=== PATIENT | female | born 1940 | race African-American/Black ===

== ENCOUNTER 2022-11-22 13:15 | Inpatient (IN) | payer OTHER ==
[2022-11-22] MEDS ORDERED: METOCLOPRAMIDE HCL INJECTION 10 MG/2 ML VIAL IVPUSH ONE (14:41)
[2022-11-22] MEDS ORDERED: METOCLOPRAMIDE HCL INJECTION 10 MG/2 ML VIAL ONE (15:00)
[2022-11-22 15:25] LABS: BASO % 0.8 % (0-2.0); EOS % 1.6 % (0-4.5); HEMATOCRIT 30.4 % (32.4-45.2); MCH 27.7 pg (25.7-33.7); MCHC 32.9 g/dl (32.0-36.0); MEAN CELL VOLUME 84.2 fl (80-96); MEAN PLT VOLUME 7.9 fl (7.5-11.1); MONO % 4.9 % (3.8-10.2); NEUT % 66.7 % (42.8-82.8); PLATELET COUNT 267 10^3/uL (134-434); RDW 13.7 % (11.6-15.6); WHITE BLOOD COUNT 7.9 K/mm3 (4.0-10.0)
[2022-11-22 15:32] LABS: INR 0.97 (0.83-1.09); PROTHROMBIN TIME (PATIENT) 11.2 SEC (9.7-13.0)
[2022-11-22 15:35] LABS: ACTIVATED PTT 28.5 SECONDS (25.2-36.5)
[2022-11-22 15:44] LABS: CHLORIDE 103 mmol/L (98-107); POTASSIUM 4.2 mmol/L (3.5-5.1); SODIUM 140 mmol/L (136-145)
[2022-11-22 15:46] LABS: CALCIUM 9.9 mg/dL (8.5-10.1)
[2022-11-22 15:47] LABS: ALBUMIN 3.8 g/dl (3.4-5.0); ANION GAP 13 MMOL/L (8-16); BLOOD UREA NITROGEN 76.2 mg/dL (7-18); CO2 25 mmol/L (21-32); GLUCOSE,RANDOM 119 mg/dL (74-106); MAGNESIUM 2.5 mg/dL (1.8-2.4)
[2022-11-22 15:50] LABS: SGOT/AST 14 U/L (15-37); SGPT/ALT 14 U/L (13-61)
[2022-11-22 15:51] LABS: BILIRUBIN,TOTAL 0.4 mg/dL (0.2-1)
[2022-11-22 15:52] LABS: TOT PROT 7.9 g/dl (6.4-8.2)
[2022-11-22 15:53] LABS: ALK PHOS 53 U/L (45-117); CREATININE 8.8 mg/dL (0.55-1.3)
[2022-11-22 18:49] LABS: EPI CELLS 18 /uL (0-25.1); HYALINE CASTS 0 /uL (0-3.1); PH,URINE 6.5 (5.0-8.0); URINE APPEARANCE CLEAR; URINE BACTERIA 46 /uL (0-1359); URINE BILIRUBIN NEGATIVE (NEGATIVE); URINE COLOR YELLOW; URINE GLUCOSE (UA) NEGATIVE (NEGATIVE); URINE KETONE TRACE (NEGATIVE); URINE LEUK ESTERASE NEGATIVE (NEGATIVE); URINE NITRITE NEGATIVE (NEGATIVE); URINE PROTEIN 3+ (NEGATIVE); URINE RBC 15 /uL (0-23.9); URINE UROBILINOGEN 0.2 mg/dL (0.2-1.0); URINE WBC 21 /uL (0-25.8)
[2022-11-22] MEDS ORDERED: PATIENT'S OWN MEDICATION (NON-FORMULARY) (Dorzolamide/Timolol/Pf [Dorzolamide-Timolol 2%-0 OP SCH (22:00)
[2022-11-22] MEDS: TIMOLOL 0.5% OPHTHALMIC SOL 5 ML BOTTLE OU SCH (22:45)
[2022-11-22] MEDS: DORZOLAMIDE 2% HCL OPHTHALMIC SOLUTION 10 ML BOTTLE OU SCH (22:45)
[2022-11-22] MEDS: HEPARIN NA (PORCINE) 5,000 UNITS/ML 1ML VIAL SQ SCH (23:30)
[2022-11-23] MEDS: HEPARIN NA (PORCINE) 5,000 UNITS/ML 1ML VIAL SQ SCH ×3 (06:38→22:35)
[2022-11-23 09:01] LABS: BASO % 0.8 % (0-2.0); EOS % 2.5 % (0-4.5); HEMATOCRIT 28.3 % (32.4-45.2); HEMOGLOBIN 9.3 GM/dL (10.7-15.3); LYMPH % 34.5 % (8-40); MCH 27.4 pg (25.7-33.7); MCHC 32.9 g/dl (32.0-36.0); MEAN CELL VOLUME 83.3 fl (80-96); MEAN PLT VOLUME 8.1 fl (7.5-11.1); MONO % 8.2 % (3.8-10.2); PLATELET COUNT 245 10^3/uL (134-434); RDW 13.9 % (11.6-15.6)
[2022-11-23] MEDS: TIMOLOL 0.5% OPHTHALMIC SOL 5 ML BOTTLE OU SCH ×2 (09:50→22:36)
[2022-11-23] MEDS: ASPIRIN COATED 81 MG TABLET.EC PO SCH (09:51)
[2022-11-23] MEDS: DORZOLAMIDE 2% HCL OPHTHALMIC SOLUTION 10 ML BOTTLE OU SCH ×2 (09:51→22:36)
[2022-11-23 09:55] LABS: CHLORIDE 108 mmol/L (98-107); POTASSIUM 3.9 mmol/L (3.5-5.1); SODIUM 141 mmol/L (136-145)
[2022-11-23 10:07] LABS: ALBUMIN 3.3 g/dl (3.4-5.0); ANION GAP 9 MMOL/L (8-16); BLOOD UREA NITROGEN 73.8 mg/dL (7-18); CALCIUM 9.1 mg/dL (8.5-10.1); CO2 24 mmol/L (21-32); GLUCOSE,RANDOM 97 mg/dL (74-106); MAGNESIUM 2.6 mg/dL (1.8-2.4)
[2022-11-23 10:10] LABS: PHOSPHOROUS 4.6 mg/dL (2.5-4.9); SGOT/AST 14 U/L (15-37); SGPT/ALT 11 U/L (13-61)
[2022-11-23 10:12] LABS: BILIRUBIN,TOTAL 0.5 mg/dL (0.2-1); TOT PROT 6.8 g/dl (6.4-8.2)
[2022-11-23 10:13] LABS: ALK PHOS 46 U/L (45-117)
[2022-11-23 10:18] LABS: CREATININE 8.6 mg/dL (0.55-1.3)
[2022-11-23] MEDS ORDERED: SODIUM CHLORIDE 0.45% 1,000 ML IV SCH (13:45)
[2022-11-23] MEDS: ROSUVASTATIN CA 10 MG TABLET PO SCH (22:35)
[2022-11-24] MEDS: HEPARIN NA (PORCINE) 5,000 UNITS/ML 1ML VIAL SQ SCH ×3 (05:40→21:09)
[2022-11-24 08:36] LABS: CHLORIDE 110 mmol/L (98-107); POTASSIUM 4.8 mmol/L (3.5-5.1); SODIUM 143 mmol/L (136-145)
[2022-11-24 08:42] LABS: CALCIUM 9.3 mg/dL (8.5-10.1)
[2022-11-24 08:43] LABS: ALBUMIN 3.4 g/dl (3.4-5.0); ANION GAP 8 MMOL/L (8-16); BLOOD UREA NITROGEN 73.1 mg/dL (7-18); CO2 24 mmol/L (21-32); GLUCOSE,RANDOM 113 mg/dL (74-106)
[2022-11-24 08:46] LABS: SGPT/ALT 12 U/L (13-61)
[2022-11-24 08:47] LABS: TOT PROT 7.3 g/dl (6.4-8.2)
[2022-11-24 08:48] LABS: BILIRUBIN,TOTAL 0.4 mg/dL (0.2-1)
[2022-11-24 08:49] LABS: ALK PHOS 49 U/L (45-117); CREATININE 8.5 mg/dL (0.55-1.3); SGOT/AST 13 U/L (15-37)
[2022-11-24] MEDS: SODIUM BICARBONATE 650 MG TABLET PO SCH ×2 (10:25→21:09)
[2022-11-24] MEDS: CALCITRIOL 0.25 MCG CAPSULE (FP) PO SCH (10:25)
[2022-11-24] MEDS: ASPIRIN COATED 81 MG TABLET.EC PO SCH (10:25)
[2022-11-24] MEDS: SODIUM ZIRCONIUM CYCLOSILICATE (LOKELMA) 5 GM PACKET PO SCH (10:25)
[2022-11-24] MEDS: DORZOLAMIDE 2% HCL OPHTHALMIC SOLUTION 10 ML BOTTLE OU SCH ×2 (10:26→21:12)
[2022-11-24] MEDS: TIMOLOL 0.5% OPHTHALMIC SOL 5 ML BOTTLE OU SCH ×2 (10:27→21:10)
[2022-11-24] MEDS: prednisoLONE ACETATE 1% OPHTH SUSP 5 ML BOTTLE OS SCH ×2 (10:47→21:14)
[2022-11-24 12:42] LABS: EOS % 3.3 % (0-4.5); HEMATOCRIT 28.4 % (32.4-45.2); HEMOGLOBIN 9.2 GM/dL (10.7-15.3); LYMPH % 31.6 % (8-40); MCH 27.3 pg (25.7-33.7); MCHC 32.3 g/dl (32.0-36.0); MEAN CELL VOLUME 84.6 fl (80-96); MEAN PLT VOLUME 8.7 fl (7.5-11.1); MONO % 8.2 % (3.8-10.2); NEUT % 55.9 % (42.8-82.8); PLATELET COUNT 230 10^3/uL (134-434); RBC 3.35 M/mm3 (3.60-5.2); RDW 14.2 % (11.6-15.6); WHITE BLOOD COUNT 6.4 K/mm3 (4.0-10.0)
[2022-11-24] MEDS ORDERED: SODIUM CHLORIDE 0.45% 1,000 ML IV SCH (15:30)
[2022-11-24] MEDS: ROSUVASTATIN CA 10 MG TABLET PO SCH (21:09)
[2022-11-25] MEDS: HEPARIN NA (PORCINE) 5,000 UNITS/ML 1ML VIAL SQ SCH ×3 (05:50→21:22)
[2022-11-25 08:34] LABS: CHLORIDE 110 mmol/L (98-107); SODIUM 140 mmol/L (136-145)
[2022-11-25 08:43] LABS: CALCIUM 8.4 mg/dL (8.5-10.1)
[2022-11-25 08:44] LABS: ALBUMIN 2.9 g/dl (3.4-5.0); ANION GAP 9 MMOL/L (8-16); BLOOD UREA NITROGEN 74.4 mg/dL (7-18); CO2 21 mmol/L (21-32); GLUCOSE,RANDOM 95 mg/dL (74-106)
[2022-11-25 08:47] LABS: SGOT/AST 12 U/L (15-37); SGPT/ALT 10 U/L (13-61)
[2022-11-25 08:48] LABS: TOT PROT 6.2 g/dl (6.4-8.2)
[2022-11-25 08:49] LABS: ALK PHOS 40 U/L (45-117); BILIRUBIN,TOTAL 0.3 mg/dL (0.2-1); CREATININE 8.4 mg/dL (0.55-1.3)
[2022-11-25] MEDS: CALCITRIOL 0.25 MCG CAPSULE (FP) PO SCH (09:40)
[2022-11-25] MEDS: SODIUM BICARBONATE 650 MG TABLET PO SCH ×2 (09:40→21:22)
[2022-11-25] MEDS: DORZOLAMIDE 2% HCL OPHTHALMIC SOLUTION 10 ML BOTTLE OU SCH ×2 (09:40→21:23)
[2022-11-25] MEDS: ASPIRIN COATED 81 MG TABLET.EC PO SCH (09:40)
[2022-11-25] MEDS: TIMOLOL 0.5% OPHTHALMIC SOL 5 ML BOTTLE OU SCH ×2 (09:41→21:23)
[2022-11-25] MEDS: prednisoLONE ACETATE 1% OPHTH SUSP 5 ML BOTTLE OS SCH ×2 (09:41→21:49)
[2022-11-25] MEDS ORDERED: amLODIPine BESYLATE 2.5 MG TABLET (FP) PO ONE (16:26)
[2022-11-25] MEDS: MECLIZINE HCL 12.5 MG TABLET PO SCH ×2 (17:32→21:22)
[2022-11-25] MEDS: ROSUVASTATIN CA 10 MG TABLET PO SCH (21:22)
[2022-11-26] MEDS: HEPARIN NA (PORCINE) 5,000 UNITS/ML 1ML VIAL SQ SCH ×3 (06:50→21:18)
[2022-11-26] MEDS: MECLIZINE HCL 12.5 MG TABLET PO SCH (06:50)
[2022-11-26] MEDS: ASPIRIN COATED 81 MG TABLET.EC PO SCH (10:23)
[2022-11-26] MEDS: amLODIPine BESYLATE 2.5 MG TABLET (FP) PO SCH (10:23)
[2022-11-26] MEDS: CALCITRIOL 0.25 MCG CAPSULE (FP) PO SCH (10:23)
[2022-11-26] MEDS: SODIUM BICARBONATE 650 MG TABLET PO SCH ×2 (10:23→21:18)
[2022-11-26] MEDS: DORZOLAMIDE 2% HCL OPHTHALMIC SOLUTION 10 ML BOTTLE OU SCH ×2 (10:24→21:19)
[2022-11-26] MEDS: TIMOLOL 0.5% OPHTHALMIC SOL 5 ML BOTTLE OU SCH ×2 (10:24→21:19)
[2022-11-26] MEDS: prednisoLONE ACETATE 1% OPHTH SUSP 5 ML BOTTLE OS SCH ×2 (10:24→21:20)
[2022-11-26] MEDS: SODIUM ZIRCONIUM CYCLOSILICATE (LOKELMA) 5 GM PACKET PO SCH (11:01)
[2022-11-26] MEDS ORDERED: MECLIZINE HCL 25 MG TABLET (FP) PO PRN (12:21)
[2022-11-26] MEDS ORDERED: SODIUM CHLORIDE 0.9% 500 ML INFUS.BAG IV ONE (13:00)
[2022-11-26] MEDS: ROSUVASTATIN CA 10 MG TABLET PO SCH (21:18)
[2022-11-27] MEDS: HEPARIN NA (PORCINE) 5,000 UNITS/ML 1ML VIAL SQ SCH ×3 (07:10→21:03)
[2022-11-27] MEDS: ASPIRIN COATED 81 MG TABLET.EC PO SCH (09:59)
[2022-11-27] MEDS: CALCITRIOL 0.25 MCG CAPSULE (FP) PO SCH (09:59)
[2022-11-27] MEDS: amLODIPine BESYLATE 2.5 MG TABLET (FP) PO SCH (09:59)
[2022-11-27] MEDS: SODIUM BICARBONATE 650 MG TABLET PO SCH ×2 (09:59→21:03)
[2022-11-27] MEDS: prednisoLONE ACETATE 1% OPHTH SUSP 5 ML BOTTLE OS SCH ×2 (10:00→21:03)
[2022-11-27] MEDS: TIMOLOL 0.5% OPHTHALMIC SOL 5 ML BOTTLE OU SCH ×2 (10:01→21:03)
[2022-11-27] MEDS: DORZOLAMIDE 2% HCL OPHTHALMIC SOLUTION 10 ML BOTTLE OU SCH ×2 (10:01→21:05)
[2022-11-27 12:04] LABS: CHLORIDE 109 mmol/L (98-107); POTASSIUM 4.2 mmol/L (3.5-5.1); SODIUM 141 mmol/L (136-145)
[2022-11-27 12:06] LABS: ANION GAP 8 MMOL/L (8-16); BLOOD UREA NITROGEN 74.3 mg/dL (7-18); CALCIUM 9.1 mg/dL (8.5-10.1); CO2 23 mmol/L (21-32); GLUCOSE,RANDOM 173 mg/dL (74-106)
[2022-11-27 12:43] LABS: CREATININE 8.9 mg/dL (0.55-1.3)
[2022-11-27] MEDS ORDERED: amLODIPine BESYLATE 5 MG TABLET (FP) PO SCH (15:11)
[2022-11-27] MEDS: ACETAMINOPHEN 1000 MG/100 ML BAG IVPB PRN (15:32)
[2022-11-27] MEDS: LIDOCAINE 5% TOPICAL PATCH TP SCH (15:32)
[2022-11-27] MEDS: ROSUVASTATIN CA 10 MG TABLET PO SCH (21:03)
[2022-11-27 21:08] LABS: ANTIGLOMERULAR BASEMENT MEN.AB <0.2 units (0.0-0.9)
[2022-11-27] MEDS ORDERED: LIDOCAINE PATCH REMOVAL MC SCH (22:00)
[2022-11-28] MEDS: HEPARIN NA (PORCINE) 5,000 UNITS/ML 1ML VIAL SQ SCH ×3 (06:00→21:29)
[2022-11-28] MEDS: SODIUM BICARBONATE 650 MG TABLET PO SCH ×2 (09:13→22:10)
[2022-11-28] MEDS: ASPIRIN COATED 81 MG TABLET.EC PO SCH (09:13)
[2022-11-28] MEDS: CALCITRIOL 0.25 MCG CAPSULE (FP) PO SCH (09:13)
[2022-11-28] MEDS: LIDOCAINE 5% TOPICAL PATCH TP SCH (09:13)
[2022-11-28] MEDS: ACETAMINOPHEN 1000 MG/100 ML BAG IVPB PRN (09:13)
[2022-11-28] MEDS: prednisoLONE ACETATE 1% OPHTH SUSP 5 ML BOTTLE OS SCH ×2 (09:14→21:33)
[2022-11-28] MEDS: DORZOLAMIDE 2% HCL OPHTHALMIC SOLUTION 10 ML BOTTLE OU SCH ×2 (09:14→21:34)
[2022-11-28] MEDS: TIMOLOL 0.5% OPHTHALMIC SOL 5 ML BOTTLE OU SCH ×2 (09:14→21:34)
[2022-11-28] MEDS ORDERED: HEPARIN NA (PORCINE) 5,000 UNITS/ML 1ML VIAL ONE (14:52)
[2022-11-28] MEDS ORDERED: LIDOCAINE HCL 1%, 10 MG/ML (20ML VIAL) ONE (14:52)
[2022-11-28] MEDS ORDERED: SODIUM CHLORIDE 250 ML IV PRN ×2 (15:56→19:00)
[2022-11-28] MEDS ORDERED: MIDAZOLAM HCL 2 MG/2 ML SINGLE DOSE VIAL ONE (16:07)
[2022-11-28 16:08] LABS: ATYPICAL pANCA <1:20 titer (Neg:<1:20); C-ANCA <1:20 titer (Neg:<1:20)
[2022-11-28] MEDS ORDERED: PROPOFOL 20 ML ONE (17:42)
[2022-11-28] MEDS ORDERED: SUCCINYLCHOLINE CHLORIDE 200 MG/10 ML SYRINGE ONE (17:43)
[2022-11-28] MEDS ORDERED: ceFAZolin SODIUM 1 GM VIAL IVPB ONE (17:54)
[2022-11-28] MEDS ORDERED: LIDOCAINE HCL 1%, 10 MG/ML (20ML VIAL) INF ONE (17:58)
[2022-11-28] MEDS ORDERED: ONDANSETRON 4 MG/2 ML VIAL IVPUSH PRN ×2 (18:25→19:00)
[2022-11-28] MEDS ORDERED: LACTATED RINGERS SOLUTION 1,000 ML IV SCH ×2 (18:30→19:00)
[2022-11-28] MEDS ORDERED: LABETALOL HCL 5 MG/1 ML (100MG/20 ML VIAL) ONE (18:35)
[2022-11-28] MEDS ORDERED: LABETALOL HCL 20 MG/4 ML VIAL IVPUSH ONE (18:36)
[2022-11-28] MEDS ORDERED: LABETALOL HCL 5 MG/1 ML (100MG/20 ML VIAL) IVPUSH ONE (19:00)
[2022-11-28] MEDS: ROSUVASTATIN CA 10 MG TABLET PO SCH (21:28)
[2022-11-28] MEDS: LIDOCAINE PATCH REMOVAL MC SCH (21:44)
[2022-11-29] MEDS: HEPARIN NA (PORCINE) 5,000 UNITS/ML 1ML VIAL SQ SCH ×3 (06:22→22:44)
[2022-11-29] MEDS: SODIUM BICARBONATE 650 MG TABLET PO SCH (09:50)
[2022-11-29] MEDS: ASPIRIN COATED 81 MG TABLET.EC PO SCH (09:50)
[2022-11-29] MEDS: amLODIPine BESYLATE 5 MG TABLET (FP) PO SCH (09:50)
[2022-11-29] MEDS: CALCITRIOL 0.25 MCG CAPSULE (FP) PO SCH (09:50)
[2022-11-29] MEDS: TIMOLOL 0.5% OPHTHALMIC SOL 5 ML BOTTLE OU SCH ×2 (09:51→22:44)
[2022-11-29] MEDS: DORZOLAMIDE 2% HCL OPHTHALMIC SOLUTION 10 ML BOTTLE OU SCH ×2 (09:52→22:44)
[2022-11-29] MEDS: LIDOCAINE 5% TOPICAL PATCH TP SCH (09:52)
[2022-11-29] MEDS: prednisoLONE ACETATE 1% OPHTH SUSP 5 ML BOTTLE OS SCH ×2 (09:53→22:44)
[2022-11-29] MEDS ORDERED: ACETAMINOPHEN 1000 MG/100 ML BAG IVPB ONE (10:02)
[2022-11-29] MEDS: CIPROFLOXACIN HCL 0.3% OPHTH 2.5ML BOTTLE OD SCH ×2 (18:30→22:44)
[2022-11-29] MEDS: ACETAMINOPHEN 1000 MG/100 ML BAG IVPB PRN (20:57)
[2022-11-29] MEDS: LATANOPROST OD SCH (22:44)
[2022-11-29] MEDS: LIDOCAINE PATCH REMOVAL MC SCH (22:44)
[2022-11-29] MEDS: ROSUVASTATIN CA 10 MG TABLET PO SCH (22:44)
[2022-11-29] MEDS: EYE OD SCH (22:44)
[2022-11-29] MEDS: NETARSUDIL MESYLAT OD SCH (22:44)
[2022-11-30] MEDS: HEPARIN NA (PORCINE) 5,000 UNITS/ML 1ML VIAL SQ SCH ×3 (06:10→22:20)
[2022-11-30] MEDS: CIPROFLOXACIN HCL 0.3% OPHTH 2.5ML BOTTLE OD SCH ×4 (06:11→18:13)
[2022-11-30] MEDS: ACETAMINOPHEN 1000 MG/100 ML BAG IVPB PRN ×2 (06:12→17:45)
[2022-11-30 08:52] LABS: HEMATOCRIT 26.9 % (32.4-45.2); HEMOGLOBIN 9.1 GM/dL (10.7-15.3); MCH 28.2 pg (25.7-33.7); MCHC 33.9 g/dl (32.0-36.0); MEAN CELL VOLUME 83.2 fl (80-96); MEAN PLT VOLUME 8.6 fl (7.5-11.1); PLATELET COUNT 154 10^3/uL (134-434); RBC 3.24 M/mm3 (3.60-5.2); RDW 14.1 % (11.6-15.6); WHITE BLOOD COUNT 6.3 K/mm3 (4.0-10.0)
[2022-11-30 09:14] LABS: POTASSIUM 4.3 mmol/L (3.5-5.1)
[2022-11-30 09:19] LABS: CALCIUM 8.4 mg/dL (8.5-10.1)
[2022-11-30 09:20] LABS: ALBUMIN 3.1 g/dl (3.4-5.0)
[2022-11-30 09:23] LABS: CREATININE 6.8 mg/dL (0.55-1.3)
[2022-11-30 09:24] LABS: BILIRUBIN,TOTAL 0.7 mg/dL (0.2-1); TOT PROT 6.7 g/dl (6.4-8.2)
[2022-11-30] MEDS: CALCITRIOL 0.25 MCG CAPSULE (FP) PO SCH (09:56)
[2022-11-30] MEDS: ASPIRIN COATED 81 MG TABLET.EC PO SCH (09:56)
[2022-11-30] MEDS: TIMOLOL 0.5% OPHTHALMIC SOL 5 ML BOTTLE OU SCH ×2 (09:57→22:22)
[2022-11-30] MEDS: prednisoLONE ACETATE 1% OPHTH SUSP 5 ML BOTTLE OS SCH ×2 (09:57→22:22)
[2022-11-30] MEDS: amLODIPine BESYLATE 5 MG TABLET (FP) PO SCH (09:57)
[2022-11-30] MEDS: DORZOLAMIDE 2% HCL OPHTHALMIC SOLUTION 10 ML BOTTLE OU SCH ×2 (09:58→22:28)
[2022-11-30] MEDS: LIDOCAINE 5% TOPICAL PATCH TP SCH (11:30)
[2022-11-30] MEDS ORDERED: ERYTHROMYCIN 0.5% OPHTHALMIC OINTMENT 3.5 GM TUBE OD SCH (11:30)
[2022-11-30] MEDS: LIDOCAINE 4% PATCH TP SCH (12:30)
[2022-11-30] MEDS ORDERED: SODIUM CHLORIDE 250 ML IV PRN (19:42)
[2022-11-30] MEDS ORDERED: CEFEPIME HCL 2 GM VIAL (RESTRICTED TO ID) IVPB SCH (20:00)
[2022-11-30] MEDS ORDERED: ACYCLOVIR 1000 MG (50MG/ML) VIAL IVPB SCH (20:00)
[2022-11-30] MEDS ORDERED: VANCOMYCIN/WATER FOR INJ (PEG) 1,000 MG/200 ML BAG IVPB ONE (20:15)
[2022-11-30] MEDS: LIDOCAINE PATCH REMOVAL MC SCH (22:20)
[2022-11-30] MEDS: TOBRA 0.3%/DEXAMETH 0.1% OPHTHALMIC SUSP 2.5 ML BTL OD SCH (22:24)
[2022-11-30] MEDS: ROSUVASTATIN CA 10 MG TABLET PO SCH (22:37)
[2022-11-30 23:56] VITALS: BMI 25.4
[2022-12-01] MEDS: HEPARIN NA (PORCINE) 5,000 UNITS/ML 1ML VIAL SQ SCH ×3 (05:15→21:57)
[2022-12-01] MEDS: TOBRA 0.3%/DEXAMETH 0.1% OPHTHALMIC SUSP 2.5 ML BTL OD SCH (05:28)
[2022-12-01 07:40] LABS: BASO % 0.9 % (0-2.0); EOS % 4.5 % (0-4.5); HEMATOCRIT 27.8 % (32.4-45.2); LYMPH % 27.1 % (8-40); MCH 27.4 pg (25.7-33.7); MCHC 32.3 g/dl (32.0-36.0); MEAN CELL VOLUME 85.1 fl (80-96); MEAN PLT VOLUME 9.2 fl (7.5-11.1); MONO % 13.3 % (3.8-10.2); NEUT % 54.2 % (42.8-82.8); PLATELET COUNT 163 10^3/uL (134-434); RBC 3.26 M/mm3 (3.60-5.2); RDW 14.2 % (11.6-15.6); WHITE BLOOD COUNT 6.9 K/mm3 (4.0-10.0)
[2022-12-01 07:59] LABS: POTASSIUM 4.4 mmol/L (3.5-5.1)
[2022-12-01 08:06] LABS: CALCIUM 8.7 mg/dL (8.5-10.1)
[2022-12-01 08:07] LABS: ALBUMIN 3.1 g/dl (3.4-5.0); BLOOD UREA NITROGEN 52.8 mg/dL (7-18); CREATININE 7.4 mg/dL (0.55-1.3)
[2022-12-01 08:08] LABS: BILIRUBIN,TOTAL 0.4 mg/dL (0.2-1)
[2022-12-01] MEDS: AMINO ACIDS/PROTEIN HYDROLYS 30 ML LIQUID.PKT PO SCH (08:12)
[2022-12-01] MEDS ORDERED: ACYCLOVIR SODIUM IVPB ONE (09:00)
[2022-12-01] MEDS ORDERED: WATER IVPB ONE (09:00)
[2022-12-01] MEDS ORDERED: CEFEPIME 2 GM in DEXTROSE 5%-WATER 100 ML IVPB ONE ×2 (09:00→21:00)
[2022-12-01] MEDS ORDERED: DEXTROSE 5% IVPB ONE (09:00)
[2022-12-01] MEDS: LIDOCAINE 4% PATCH TP SCH (10:00)
[2022-12-01] MEDS: TOBRAMYCIN 0.3% OPHTH SOLN 5 ML BOTTLE OD SCH ×4 (10:48→22:00)
[2022-12-01] MEDS: BACITRACIN 3.5 GM OPTHALMIC OINT TUBE OD SCH ×5 (10:49→20:34)
[2022-12-01] MEDS: ASPIRIN COATED 81 MG TABLET.EC PO SCH (10:50)
[2022-12-01] MEDS: prednisoLONE ACETATE 1% OPHTH SUSP 5 ML BOTTLE OS SCH ×2 (10:50→22:03)
[2022-12-01] MEDS: CALCITRIOL 0.25 MCG CAPSULE (FP) PO SCH (10:50)
[2022-12-01] MEDS: amLODIPine BESYLATE 5 MG TABLET (FP) PO SCH (10:50)
[2022-12-01] MEDS: TIMOLOL 0.5% OPHTHALMIC SOL 5 ML BOTTLE OU SCH ×2 (10:52→22:05)
[2022-12-01] MEDS: DORZOLAMIDE 2% HCL OPHTHALMIC SOLUTION 10 ML BOTTLE OU SCH ×2 (10:52→22:02)
[2022-12-01] MEDS ORDERED: amLODIPine BESYLATE 5 MG TABLET (FP) PO ONE (12:43)
[2022-12-01] MEDS ORDERED: ACETAMINOPHEN 1000 MG/100 ML BAG IVPB PRN (16:14)
[2022-12-01] MEDS ORDERED: ACYCLOVIR 1000 MG (50MG/ML) VIAL IVPB SCH (18:15)
[2022-12-01] MEDS: ACYCLOVIR INJECTION 350 MG in DEXTROSE 5%-WATER - 100 ML IVPB SCH (20:27)
[2022-12-01] MEDS: ROSUVASTATIN CA 10 MG TABLET PO SCH (21:57)
[2022-12-01] MEDS ORDERED: VANCOMYCIN/WATER FOR INJ (PEG) 1,000 MG/200 ML BAG IVPB ONE (22:00)
[2022-12-01] MEDS: EYE OD SCH (22:12)
[2022-12-01] MEDS: NETARSUDIL MESYLAT OD SCH (22:12)
[2022-12-01] MEDS: LATANOPROST OD SCH (22:12)
[2022-12-01] MEDS: LIDOCAINE PATCH REMOVAL MC SCH (22:16)
[2022-12-02] MEDS: BACITRACIN 3.5 GM OPTHALMIC OINT TUBE OD SCH ×8 (00:04→21:27)
[2022-12-02] MEDS: HEPARIN NA (PORCINE) 5,000 UNITS/ML 1ML VIAL SQ SCH ×3 (05:44→21:39)
[2022-12-02] MEDS: TOBRAMYCIN 0.3% OPHTH SOLN 5 ML BOTTLE OD SCH ×5 (05:45→21:30)
[2022-12-02] MEDS: AMINO ACIDS/PROTEIN HYDROLYS 30 ML LIQUID.PKT PO SCH (08:42)
[2022-12-02] MEDS: CALCITRIOL 0.25 MCG CAPSULE (FP) PO SCH (10:02)
[2022-12-02] MEDS: ASPIRIN COATED 81 MG TABLET.EC PO SCH (10:02)
[2022-12-02] MEDS: amLODIPine BESYLATE 5 MG TABLET (FP) PO SCH (10:02)
[2022-12-02] MEDS: DORZOLAMIDE 2% HCL OPHTHALMIC SOLUTION 10 ML BOTTLE OU SCH ×2 (10:03→22:29)
[2022-12-02] MEDS: TIMOLOL 0.5% OPHTHALMIC SOL 5 ML BOTTLE OU SCH ×2 (10:03→22:28)
[2022-12-02] MEDS: prednisoLONE ACETATE 1% OPHTH SUSP 5 ML BOTTLE OS SCH ×2 (10:03→21:28)
[2022-12-02] MEDS: LIDOCAINE 4% PATCH TP SCH (10:03)
[2022-12-02] MEDS ORDERED: SODIUM CHLORIDE 0.45% 1,000 ML IV SCH (12:00)
[2022-12-02] MEDS ORDERED: CEFEPIME 2 GM in DEXTROSE 5%-WATER 100 ML IVPB ONE (12:30)
[2022-12-02 13:15] LABS: POTASSIUM 3.8 mmol/L (3.5-5.1)
[2022-12-02 13:17] LABS: ALBUMIN 3.2 g/dl (3.4-5.0); BLOOD UREA NITROGEN 41.5 mg/dL (7-18); CALCIUM 8.6 mg/dL (8.5-10.1)
[2022-12-02 13:20] LABS: CREATININE 5.9 mg/dL (0.55-1.3)
[2022-12-02 13:22] LABS: BILIRUBIN,TOTAL 0.5 mg/dL (0.2-1); TOT PROT 7.5 g/dl (6.4-8.2)
[2022-12-02] MEDS: ROSUVASTATIN CA 10 MG TABLET PO SCH (21:38)
[2022-12-02] MEDS: EYE OD SCH (21:39)
[2022-12-02] MEDS: LATANOPROST OD SCH (21:39)
[2022-12-02] MEDS: NETARSUDIL MESYLAT OD SCH (21:39)
[2022-12-02] MEDS: LIDOCAINE PATCH REMOVAL MC SCH (21:40)
[2022-12-02] MEDS: ACYCLOVIR INJECTION 350 MG in DEXTROSE 5%-WATER - 100 ML IVPB SCH (21:48)
[2022-12-03] MEDS: BACITRACIN 3.5 GM OPTHALMIC OINT TUBE OD SCH ×9 (00:34→23:55)
[2022-12-03] MEDS: TOBRAMYCIN 0.3% OPHTH SOLN 5 ML BOTTLE OD SCH ×5 (06:17→21:52)
[2022-12-03] MEDS: HEPARIN NA (PORCINE) 5,000 UNITS/ML 1ML VIAL SQ SCH ×3 (06:33→21:47)
[2022-12-03 07:49] LABS: BASO % 0.6 % (0-2.0); EOS % 2.1 % (0-4.5); HEMATOCRIT 29.1 % (32.4-45.2); HEMOGLOBIN 9.5 GM/dL (10.7-15.3); LYMPH % 24.4 % (8-40); MCH 27.5 pg (25.7-33.7); MCHC 32.5 g/dl (32.0-36.0); MEAN CELL VOLUME 84.7 fl (80-96); MONO % 10.7 % (3.8-10.2); NEUT % 62.2 % (42.8-82.8); PLATELET COUNT 175 10^3/uL (134-434); RBC 3.44 M/mm3 (3.60-5.2); RDW 13.9 % (11.6-15.6); WHITE BLOOD COUNT 10.6 K/mm3 (4.0-10.0)
[2022-12-03 08:02] LABS: CHLORIDE 100 mmol/L (98-107); POTASSIUM 3.8 mmol/L (3.5-5.1); SODIUM 135 mmol/L (136-145)
[2022-12-03 08:07] LABS: ANION GAP 13 MMOL/L (8-16); CALCIUM 8.3 mg/dL (8.5-10.1); CO2 22 mmol/L (21-32); GLUCOSE,RANDOM 118 mg/dL (74-106)
[2022-12-03 08:10] LABS: CREATININE 6.9 mg/dL (0.55-1.3); SGOT/AST 18 U/L (15-37); SGPT/ALT < 6 U/L (13-61)
[2022-12-03 08:12] LABS: BILIRUBIN,TOTAL 0.6 mg/dL (0.2-1); TOT PROT 7.4 g/dl (6.4-8.2)
[2022-12-03 08:13] LABS: ALK PHOS 59 U/L (45-117)
[2022-12-03] MEDS ORDERED: LABETALOL HCL 5 MG/1 ML (100MG/20 ML VIAL) IVPUSH ONE (08:43)
[2022-12-03] MEDS: CALCITRIOL 0.25 MCG CAPSULE (FP) PO SCH (09:06)
[2022-12-03] MEDS: amLODIPine BESYLATE 5 MG TABLET (FP) PO SCH (09:06)
[2022-12-03] MEDS: ASPIRIN COATED 81 MG TABLET.EC PO SCH (09:06)
[2022-12-03] MEDS: AMINO ACIDS/PROTEIN HYDROLYS 30 ML LIQUID.PKT PO SCH (09:06)
[2022-12-03] MEDS ORDERED: LABETALOL HCL 20 MG/4 ML VIAL IVPUSH ONE ×2 (09:15→09:30)
[2022-12-03] MEDS ORDERED: SODIUM CHLORIDE 250 ML IV PRN ×2 (09:40→17:17)
[2022-12-03] MEDS: prednisoLONE ACETATE 1% OPHTH SUSP 5 ML BOTTLE OS SCH ×2 (09:54→21:49)
[2022-12-03] MEDS: DORZOLAMIDE 2% HCL OPHTHALMIC SOLUTION 10 ML BOTTLE OU SCH ×2 (09:55→22:02)
[2022-12-03] MEDS: TIMOLOL 0.5% OPHTHALMIC SOL 5 ML BOTTLE OU SCH ×2 (09:55→22:01)
[2022-12-03] MEDS: LIDOCAINE 4% PATCH TP SCH (10:07)
[2022-12-03] MEDS ORDERED: LORazepam 2 MG/ML SDV VIAL IVPUSH ONE (12:30)
[2022-12-03] MEDS: LATANOPROST OD SCH ×2 (21:46→21:47)
[2022-12-03] MEDS: NETARSUDIL MESYLAT OD SCH ×2 (21:46→21:47)
[2022-12-03] MEDS: EYE OD SCH ×2 (21:46→21:47)
[2022-12-03] MEDS: ROSUVASTATIN CA 10 MG TABLET PO SCH (21:47)
[2022-12-03] MEDS: LIDOCAINE PATCH REMOVAL MC SCH (21:48)
[2022-12-04] MEDS: BACITRACIN 3.5 GM OPTHALMIC OINT TUBE OD SCH ×8 (03:10→23:02)
[2022-12-04] MEDS: HEPARIN NA (PORCINE) 5,000 UNITS/ML 1ML VIAL SQ SCH ×3 (06:45→22:58)
[2022-12-04] MEDS: TOBRAMYCIN 0.3% OPHTH SOLN 5 ML BOTTLE OD SCH ×5 (06:46→23:13)
[2022-12-04 07:35] LABS: BASO % 0.6 % (0-2.0); EOS % 2.1 % (0-4.5); HEMATOCRIT 29.9 % (32.4-45.2); HEMOGLOBIN 9.8 GM/dL (10.7-15.3); LYMPH % 23.2 % (8-40); MCH 27.6 pg (25.7-33.7); MCHC 32.7 g/dl (32.0-36.0); MEAN CELL VOLUME 84.3 fl (80-96); MONO % 11.2 % (3.8-10.2); NEUT % 62.9 % (42.8-82.8); PLATELET COUNT 161 10^3/uL (134-434); RBC 3.54 M/mm3 (3.60-5.2); WHITE BLOOD COUNT 10.7 K/mm3 (4.0-10.0)
[2022-12-04 07:55] LABS: POTASSIUM 3.6 mmol/L (3.5-5.1)
[2022-12-04 07:59] LABS: CALCIUM 8.3 mg/dL (8.5-10.1)
[2022-12-04 08:00] LABS: ALBUMIN 2.9 g/dl (3.4-5.0)
[2022-12-04 08:02] LABS: PHOSPHOROUS 4.6 mg/dL (2.5-4.9)
[2022-12-04 08:03] LABS: CREATININE 4.6 mg/dL (0.55-1.3)
[2022-12-04 08:04] LABS: BILIRUBIN,TOTAL 0.6 mg/dL (0.2-1); TOT PROT 7.3 g/dl (6.4-8.2)
[2022-12-04 08:48] LABS: BLOOD UREA NITROGEN 25.8 mg/dL (7-18)
[2022-12-04] MEDS: amLODIPine BESYLATE 5 MG TABLET (FP) PO SCH (09:17)
[2022-12-04] MEDS: ASPIRIN COATED 81 MG TABLET.EC PO SCH (09:17)
[2022-12-04] MEDS: LIDOCAINE 4% PATCH TP SCH (09:17)
[2022-12-04] MEDS: prednisoLONE ACETATE 1% OPHTH SUSP 5 ML BOTTLE OS SCH ×2 (09:18→23:04)
[2022-12-04] MEDS: AMINO ACIDS/PROTEIN HYDROLYS 30 ML LIQUID.PKT PO SCH (09:18)
[2022-12-04] MEDS: CALCITRIOL 0.25 MCG CAPSULE (FP) PO SCH (09:18)
[2022-12-04] MEDS: TIMOLOL 0.5% OPHTHALMIC SOL 5 ML BOTTLE OU SCH ×2 (09:18→23:11)
[2022-12-04] MEDS: DORZOLAMIDE 2% HCL OPHTHALMIC SOLUTION 10 ML BOTTLE OU SCH ×2 (09:20→23:13)
[2022-12-04] MEDS ORDERED: AMINO ACIDS 4.25%/D5W 1,000 ML IV SCH (10:45)
[2022-12-04] MEDS: AMINO ACIDS 4.25%/D5W 1,000 ML IV SCH (12:59)
[2022-12-04] MEDS: ROSUVASTATIN CA 10 MG TABLET PO SCH (22:58)
[2022-12-04] MEDS: LIDOCAINE PATCH REMOVAL MC SCH (22:59)
[2022-12-04] MEDS: EYE OD SCH (23:04)
[2022-12-04] MEDS: NETARSUDIL MESYLAT OD SCH (23:04)
[2022-12-04] MEDS: LATANOPROST OD SCH (23:04)
[2022-12-05] MEDS: BACITRACIN 3.5 GM OPTHALMIC OINT TUBE OD SCH ×8 (03:00→23:45)
[2022-12-05] MEDS: HEPARIN NA (PORCINE) 5,000 UNITS/ML 1ML VIAL SQ SCH ×3 (06:18→21:42)
[2022-12-05] MEDS: TOBRAMYCIN 0.3% OPHTH SOLN 5 ML BOTTLE OD SCH ×5 (06:22→22:46)
[2022-12-05 07:25] LABS: BASO % 0.8 % (0-2.0); EOS % 2.7 % (0-4.5); HEMATOCRIT 30.8 % (32.4-45.2); HEMOGLOBIN 9.7 GM/dL (10.7-15.3); LYMPH % 24.6 % (8-40); MCH 27.3 pg (25.7-33.7); MCHC 31.6 g/dl (32.0-36.0); MEAN CELL VOLUME 86.3 fl (80-96); NEUT % 61.9 % (42.8-82.8); PLATELET COUNT 178 10^3/uL (134-434); RBC 3.57 M/mm3 (3.60-5.2); RDW 14.1 % (11.6-15.6); WHITE BLOOD COUNT 10.8 K/mm3 (4.0-10.0)
[2022-12-05 07:45] LABS: POTASSIUM 3.7 mmol/L (3.5-5.1)
[2022-12-05 07:48] LABS: BLOOD UREA NITROGEN 33.5 mg/dL (7-18); CALCIUM 8.5 mg/dL (8.5-10.1)
[2022-12-05 07:49] LABS: ALBUMIN 3.1 g/dl (3.4-5.0)
[2022-12-05 07:52] LABS: CREATININE 4.1 mg/dL (0.55-1.3)
[2022-12-05 07:53] LABS: BILIRUBIN,TOTAL 0.6 mg/dL (0.2-1); TOT PROT 7.7 g/dl (6.4-8.2)
[2022-12-05] MEDS: ASPIRIN COATED 81 MG TABLET.EC PO SCH (09:52)
[2022-12-05] MEDS: CALCITRIOL 0.25 MCG CAPSULE (FP) PO SCH (09:53)
[2022-12-05] MEDS: amLODIPine BESYLATE 5 MG TABLET (FP) PO SCH (09:53)
[2022-12-05] MEDS: prednisoLONE ACETATE 1% OPHTH SUSP 5 ML BOTTLE OS SCH ×2 (09:55→21:43)
[2022-12-05] MEDS: TIMOLOL 0.5% OPHTHALMIC SOL 5 ML BOTTLE OU SCH ×2 (09:56→22:40)
[2022-12-05] MEDS: DORZOLAMIDE 2% HCL OPHTHALMIC SOLUTION 10 ML BOTTLE OU SCH ×2 (09:56→22:30)
[2022-12-05] MEDS: AMINO ACIDS 4.25%/D5W 1,000 ML IV SCH (09:57)
[2022-12-05] MEDS ORDERED: SODIUM CHLORIDE 250 ML IV PRN (14:34)
[2022-12-05] MEDS: LIDOCAINE 4% PATCH TP SCH (21:40)
[2022-12-05] MEDS: ROSUVASTATIN CA 10 MG TABLET PO SCH (21:42)
[2022-12-05] MEDS: LIDOCAINE PATCH REMOVAL MC SCH (21:42)
[2022-12-05] MEDS: LATANOPROST OD SCH (21:43)
[2022-12-05] MEDS: NETARSUDIL MESYLAT OD SCH (21:43)
[2022-12-05] MEDS: EYE OD SCH (21:43)
[2022-12-06] MEDS: BACITRACIN 3.5 GM OPTHALMIC OINT TUBE OD SCH ×8 (03:00→23:33)
[2022-12-06] MEDS: HEPARIN NA (PORCINE) 5,000 UNITS/ML 1ML VIAL SQ SCH ×3 (06:12→21:09)
[2022-12-06] MEDS: TOBRAMYCIN 0.3% OPHTH SOLN 5 ML BOTTLE OD SCH ×5 (06:12→21:11)
[2022-12-06 09:26] LABS: HEMATOCRIT 25.6 % (32.4-45.2); HEMOGLOBIN 8.6 GM/dL (10.7-15.3); MCHC 33.4 g/dl (32.0-36.0); MEAN CELL VOLUME 83.7 fl (80-96); PLATELET COUNT 156 10^3/uL (134-434); RBC 3.06 M/mm3 (3.60-5.2); WHITE BLOOD COUNT 9.9 K/mm3 (4.0-10.0)
[2022-12-06 09:47] LABS: POTASSIUM 3.4 mmol/L (3.5-5.1)
[2022-12-06 09:59] LABS: CALCIUM 7.7 mg/dL (8.5-10.1)
[2022-12-06 10:16] LABS: BLOOD UREA NITROGEN 65.3 mg/dL (7-18)
[2022-12-06] MEDS ORDERED: POTASSIUM CHLORIDE ORAL LIQUID 20 MEQ/15 ML PO ONE (12:00)
[2022-12-06] MEDS: amLODIPine BESYLATE 5 MG TABLET (FP) PO SCH (12:03)
[2022-12-06] MEDS: CALCITRIOL 0.25 MCG CAPSULE (FP) PO SCH (12:04)
[2022-12-06] MEDS: ASPIRIN COATED 81 MG TABLET.EC PO SCH (12:04)
[2022-12-06] MEDS: DORZOLAMIDE 2% HCL OPHTHALMIC SOLUTION 10 ML BOTTLE OU SCH ×2 (12:06→21:14)
[2022-12-06] MEDS: TIMOLOL 0.5% OPHTHALMIC SOL 5 ML BOTTLE OU SCH ×2 (12:06→21:23)
[2022-12-06] MEDS: prednisoLONE ACETATE 1% OPHTH SUSP 5 ML BOTTLE OS SCH ×2 (12:09→21:24)
[2022-12-06] MEDS: AMINO ACIDS 4.25%/D5W 1,000 ML IV SCH (12:13)
[2022-12-06] MEDS: LIDOCAINE 4% PATCH TP SCH (12:25)
[2022-12-06] MEDS: ROSUVASTATIN CA 10 MG TABLET PO SCH (21:09)
[2022-12-06] MEDS: LATANOPROST OD SCH (21:10)
[2022-12-06] MEDS: EYE OD SCH (21:10)
[2022-12-06] MEDS: NETARSUDIL MESYLAT OD SCH (21:10)
[2022-12-06] MEDS: LIDOCAINE PATCH REMOVAL MC SCH (21:31)
[2022-12-07] MEDS: BACITRACIN 3.5 GM OPTHALMIC OINT TUBE OD SCH ×8 (02:45→23:09)
[2022-12-07] MEDS: TOBRAMYCIN 0.3% OPHTH SOLN 5 ML BOTTLE OD SCH ×5 (05:37→21:35)
[2022-12-07] MEDS: HEPARIN NA (PORCINE) 5,000 UNITS/ML 1ML VIAL SQ SCH ×3 (05:42→21:34)
[2022-12-07 07:44] LABS: BASO % 0.5 % (0-2.0); EOS % 2.4 % (0-4.5); HEMATOCRIT 23.8 % (32.4-45.2); HEMOGLOBIN 7.9 GM/dL (10.7-15.3); LYMPH % 28.7 % (8-40); MCH 28.3 pg (25.7-33.7); MCHC 33.3 g/dl (32.0-36.0); MEAN CELL VOLUME 84.9 fl (80-96); MEAN PLT VOLUME 9.1 fl (7.5-11.1); MONO % 11.2 % (3.8-10.2); NEUT % 57.2 % (42.8-82.8); PLATELET COUNT 157 10^3/uL (134-434); RDW 13.8 % (11.6-15.6); WHITE BLOOD COUNT 9.4 K/mm3 (4.0-10.0)
[2022-12-07 08:21] LABS: POTASSIUM 4.4 mmol/L (3.5-5.1)
[2022-12-07 09:05] LABS: ALBUMIN 2.6 g/dl (3.4-5.0); CALCIUM 7.8 mg/dL (8.5-10.1)
[2022-12-07 09:08] LABS: CREATININE 5.1 mg/dL (0.55-1.3)
[2022-12-07 09:09] LABS: BILIRUBIN,TOTAL 0.4 mg/dL (0.2-1)
[2022-12-07 09:11] LABS: TOT PROT 6.4 g/dl (6.4-8.2)
[2022-12-07 09:12] LABS: BLOOD UREA NITROGEN 40.2 mg/dL (7-18)
[2022-12-07] MEDS: AMINO ACIDS 4.25%/D5W 1,000 ML IV SCH (10:21)
[2022-12-07] MEDS: CALCITRIOL 0.25 MCG CAPSULE (FP) PO SCH (10:23)
[2022-12-07] MEDS: ASPIRIN COATED 81 MG TABLET.EC PO SCH (10:23)
[2022-12-07] MEDS: amLODIPine BESYLATE 5 MG TABLET (FP) PO SCH (10:23)
[2022-12-07] MEDS: TIMOLOL 0.5% OPHTHALMIC SOL 5 ML BOTTLE OU SCH ×2 (10:25→21:38)
[2022-12-07] MEDS: LIDOCAINE 4% PATCH TP SCH (10:25)
[2022-12-07] MEDS: prednisoLONE ACETATE 1% OPHTH SUSP 5 ML BOTTLE OS SCH ×2 (10:26→21:35)
[2022-12-07] MEDS: DORZOLAMIDE 2% HCL OPHTHALMIC SOLUTION 10 ML BOTTLE OU SCH ×2 (10:27→21:39)
[2022-12-07] MEDS: ROSUVASTATIN CA 10 MG TABLET PO SCH (21:34)
[2022-12-07] MEDS: EYE OD SCH (21:41)
[2022-12-07] MEDS: NETARSUDIL MESYLAT OD SCH (21:41)
[2022-12-07] MEDS: LATANOPROST OD SCH (21:41)
[2022-12-07] MEDS: LIDOCAINE PATCH REMOVAL MC SCH (23:05)
[2022-12-08] MEDS: BACITRACIN 3.5 GM OPTHALMIC OINT TUBE OD SCH ×8 (02:45→23:39)
[2022-12-08] MEDS: HEPARIN NA (PORCINE) 5,000 UNITS/ML 1ML VIAL SQ SCH ×3 (05:54→21:48)
[2022-12-08] MEDS: TOBRAMYCIN 0.3% OPHTH SOLN 5 ML BOTTLE OD SCH ×5 (05:56→21:51)
[2022-12-08] MEDS ORDERED: HEPARIN NA (PORCINE) 5,000 UNITS/ML 1ML VIAL IVPUSH ONE (10:00)
[2022-12-08] MEDS ORDERED: EPOETIN ALFA-EPBX 4,000 UNIT/ML VIAL IVPUSH ONE (10:00)
[2022-12-08] MEDS ORDERED: SODIUM CHLORIDE 250 ML IV PRN (10:00)
[2022-12-08 10:34] LABS: HEMATOCRIT 22.9 % (32.4-45.2); HEMOGLOBIN 7.7 GM/dL (10.7-15.3); MCH 28.7 pg (25.7-33.7); MCHC 33.6 g/dl (32.0-36.0); MEAN CELL VOLUME 85.3 fl (80-96); MEAN PLT VOLUME 8.7 fl (7.5-11.1); PLATELET COUNT 168 10^3/uL (134-434); RBC 2.69 M/mm3 (3.60-5.2); RDW 13.6 % (11.6-15.6); WHITE BLOOD COUNT 8.4 K/mm3 (4.0-10.0)
[2022-12-08 11:00] LABS: CHLORIDE 95 mmol/L (98-107); POTASSIUM 4.6 mmol/L (3.5-5.1); SODIUM 131 mmol/L (136-145)
[2022-12-08 11:01] LABS: CALCIUM 7.6 mg/dL (8.5-10.1); GLUCOSE,RANDOM 93 mg/dL (74-106)
[2022-12-08 11:02] LABS: ALBUMIN 2.5 g/dl (3.4-5.0); ANION GAP 9 MMOL/L (8-16); BLOOD UREA NITROGEN 60.5 mg/dL (7-18); CO2 27 mmol/L (21-32)
[2022-12-08 11:05] LABS: SGOT/AST 15 U/L (15-37); SGPT/ALT 12 U/L (13-61)
[2022-12-08 11:06] LABS: TOT PROT 6.3 g/dl (6.4-8.2)
[2022-12-08 11:08] LABS: ALK PHOS 57 U/L (45-117)
[2022-12-08 11:13] LABS: BILIRUBIN,TOTAL 0.4 mg/dL (0.2-1); CREATININE 7.6 mg/dL (0.55-1.3)
[2022-12-08] MEDS: ASPIRIN COATED 81 MG TABLET.EC PO SCH (11:39)
[2022-12-08] MEDS: CALCITRIOL 0.25 MCG CAPSULE (FP) PO SCH (11:40)
[2022-12-08] MEDS: amLODIPine BESYLATE 5 MG TABLET (FP) PO SCH (11:40)
[2022-12-08] MEDS: prednisoLONE ACETATE 1% OPHTH SUSP 5 ML BOTTLE OS SCH ×2 (11:47→21:50)
[2022-12-08] MEDS: LIDOCAINE 4% PATCH TP SCH (11:47)
[2022-12-08] MEDS: TIMOLOL 0.5% OPHTHALMIC SOL 5 ML BOTTLE OU SCH ×2 (11:49→21:50)
[2022-12-08] MEDS: DORZOLAMIDE 2% HCL OPHTHALMIC SOLUTION 10 ML BOTTLE OU SCH ×2 (11:51→21:49)
[2022-12-08 14:59] LABS: EPI CELLS 4 /uL (0-25.1); HYALINE CASTS 0 /uL (0-3.1); URINE APPEARANCE CLEAR; URINE BACTERIA 1 /uL (0-1359); URINE BILIRUBIN NEGATIVE (NEGATIVE); URINE COLOR YELLOW; URINE GLUCOSE (UA) NEGATIVE (NEGATIVE); URINE KETONE NEGATIVE (NEGATIVE); URINE LEUK ESTERASE NEGATIVE (NEGATIVE); URINE NITRITE NEGATIVE (NEGATIVE); URINE PROTEIN 2+ (NEGATIVE); URINE RBC 15 /uL (0-23.9); URINE UROBILINOGEN 0.2 mg/dL (0.2-1.0); URINE WBC 4 /uL (0-25.8)
[2022-12-08] MEDS: ROSUVASTATIN CA 10 MG TABLET PO SCH (21:48)
[2022-12-08] MEDS: NETARSUDIL MESYLAT OD SCH (21:59)
[2022-12-08] MEDS: EYE OD SCH (21:59)
[2022-12-08] MEDS: LATANOPROST OD SCH (21:59)
[2022-12-08] MEDS: LIDOCAINE PATCH REMOVAL MC SCH (23:39)
[2022-12-09] MEDS: BACITRACIN 3.5 GM OPTHALMIC OINT TUBE OD SCH ×8 (02:22→23:12)
[2022-12-09] MEDS: HEPARIN NA (PORCINE) 5,000 UNITS/ML 1ML VIAL SQ SCH ×3 (05:08→21:20)
[2022-12-09] MEDS: TOBRAMYCIN 0.3% OPHTH SOLN 5 ML BOTTLE OD SCH ×5 (05:09→21:23)
[2022-12-09] MEDS ORDERED: INSULIN (NOVOLOG) ASPART 100 UNITS/ML 10ML VIAL ONE (06:24)
[2022-12-09 09:01] LABS: EOS % 2.6 % (0-4.5); HEMATOCRIT 23.4 % (32.4-45.2); HEMOGLOBIN 7.6 GM/dL (10.7-15.3); LYMPH % 31.7 % (8-40); MCHC 32.5 g/dl (32.0-36.0); MONO % 12.6 % (3.8-10.2); NEUT % 52.1 % (42.8-82.8); PLATELET COUNT 172 10^3/uL (134-434); RBC 2.72 M/mm3 (3.60-5.2); RDW 13.7 % (11.6-15.6); WHITE BLOOD COUNT 7.4 K/mm3 (4.0-10.0)
[2022-12-09] MEDS: ASPIRIN COATED 81 MG TABLET.EC PO SCH (09:20)
[2022-12-09] MEDS: amLODIPine BESYLATE 5 MG TABLET (FP) PO SCH (09:20)
[2022-12-09] MEDS: CALCITRIOL 0.25 MCG CAPSULE (FP) PO SCH (09:20)
[2022-12-09 09:21] LABS: POTASSIUM 4.2 mmol/L (3.5-5.1)
[2022-12-09] MEDS: TIMOLOL 0.5% OPHTHALMIC SOL 5 ML BOTTLE OU SCH ×2 (09:21→21:24)
[2022-12-09] MEDS: DORZOLAMIDE 2% HCL OPHTHALMIC SOLUTION 10 ML BOTTLE OU SCH ×2 (09:21→21:22)
[2022-12-09] MEDS: prednisoLONE ACETATE 1% OPHTH SUSP 5 ML BOTTLE OS SCH ×2 (09:22→21:21)
[2022-12-09 09:32] LABS: BLOOD UREA NITROGEN 36.9 mg/dL (7-18); CALCIUM 7.4 mg/dL (8.5-10.1)
[2022-12-09 09:35] LABS: CREATININE 6.5 mg/dL (0.55-1.3); MAGNESIUM 1.7 mg/dL (1.8-2.4); PHOSPHOROUS 3.8 mg/dL (2.5-4.9)
[2022-12-09] MEDS: LIDOCAINE 4% PATCH TP SCH (11:01)
[2022-12-09] MEDS: FERROUS SO4 325 MG TABLET (FP) PO SCH ×2 (12:54→21:20)
[2022-12-09] MEDS: LIDOCAINE PATCH REMOVAL MC SCH (21:20)
[2022-12-09] MEDS: EYE OD SCH (21:20)
[2022-12-09] MEDS: NETARSUDIL MESYLAT OD SCH (21:20)
[2022-12-09] MEDS: LATANOPROST OD SCH (21:20)
[2022-12-09] MEDS: ROSUVASTATIN CA 10 MG TABLET PO SCH (21:20)
[2022-12-10] MEDS: BACITRACIN 3.5 GM OPTHALMIC OINT TUBE OD SCH ×8 (01:45→23:27)
[2022-12-10] MEDS: TOBRAMYCIN 0.3% OPHTH SOLN 5 ML BOTTLE OD SCH ×5 (05:01→22:05)
[2022-12-10] MEDS: HEPARIN NA (PORCINE) 5,000 UNITS/ML 1ML VIAL SQ SCH ×3 (05:01→22:04)
[2022-12-10 08:52] LABS: CHLORIDE 100 mmol/L (98-107); POTASSIUM 4.4 mmol/L (3.5-5.1); SODIUM 135 mmol/L (136-145)
[2022-12-10 08:55] LABS: CALCIUM 7.7 mg/dL (8.5-10.1)
[2022-12-10 08:56] LABS: ANION GAP 8 MMOL/L (8-16); BLOOD UREA NITROGEN 48.3 mg/dL (7-18); CO2 28 mmol/L (21-32); GLUCOSE,RANDOM 98 mg/dL (74-106); MAGNESIUM 1.9 mg/dL (1.8-2.4)
[2022-12-10 08:59] LABS: PHOSPHOROUS 4.5 mg/dL (2.5-4.9)
[2022-12-10 09:17] LABS: CREATININE 8.4 mg/dL (0.55-1.3)
[2022-12-10] MEDS: CALCITRIOL 0.25 MCG CAPSULE (FP) PO SCH (09:31)
[2022-12-10] MEDS: FERROUS SO4 325 MG TABLET (FP) PO SCH ×2 (09:31→22:04)
[2022-12-10] MEDS: ASPIRIN COATED 81 MG TABLET.EC PO SCH (09:31)
[2022-12-10] MEDS: amLODIPine BESYLATE 5 MG TABLET (FP) PO SCH (09:31)
[2022-12-10] MEDS: TIMOLOL 0.5% OPHTHALMIC SOL 5 ML BOTTLE OU SCH ×2 (09:32→22:07)
[2022-12-10] MEDS: prednisoLONE ACETATE 1% OPHTH SUSP 5 ML BOTTLE OS SCH ×2 (09:32→22:04)
[2022-12-10] MEDS: DORZOLAMIDE 2% HCL OPHTHALMIC SOLUTION 10 ML BOTTLE OU SCH ×2 (09:33→22:07)
[2022-12-10] MEDS: LIDOCAINE 4% PATCH TP SCH (09:46)
[2022-12-10] MEDS: ROSUVASTATIN CA 10 MG TABLET PO SCH (22:04)
[2022-12-10] MEDS: LIDOCAINE PATCH REMOVAL MC SCH (22:11)
[2022-12-10] MEDS: LATANOPROST OD SCH (22:12)
[2022-12-10] MEDS: EYE OD SCH (22:12)
[2022-12-10] MEDS: NETARSUDIL MESYLAT OD SCH (22:12)
[2022-12-11] MEDS: BACITRACIN 3.5 GM OPTHALMIC OINT TUBE OD SCH ×7 (02:30→21:38)
[2022-12-11] MEDS: HEPARIN NA (PORCINE) 5,000 UNITS/ML 1ML VIAL SQ SCH ×2 (06:45→14:09)
[2022-12-11] MEDS: TOBRAMYCIN 0.3% OPHTH SOLN 5 ML BOTTLE OD SCH ×4 (06:46→18:40)
[2022-12-11 08:24] LABS: PHOSPHOROUS 4.6 mg/dL (2.5-4.9)
[2022-12-11] MEDS ORDERED: SODIUM CHLORIDE 250 ML IV PRN (08:46)
[2022-12-11] MEDS ORDERED: HEPARIN NA (PORCINE) 5,000 UNITS/ML 1ML VIAL IVPUSH ONE (09:00)
[2022-12-11] MEDS: amLODIPine BESYLATE 5 MG TABLET (FP) PO SCH (09:18)
[2022-12-11] MEDS: CALCITRIOL 0.25 MCG CAPSULE (FP) PO SCH (09:18)
[2022-12-11] MEDS: ASPIRIN COATED 81 MG TABLET.EC PO SCH (09:18)
[2022-12-11] MEDS: FERROUS SO4 325 MG TABLET (FP) PO SCH (09:18)
[2022-12-11] MEDS: EPOETIN ALFA-EPBX 10,000 UNIT/ML VIAL SQ ONE ×2 (09:19→10:06)
[2022-12-11] MEDS: prednisoLONE ACETATE 1% OPHTH SUSP 5 ML BOTTLE OS SCH (09:19)
[2022-12-11] MEDS: DORZOLAMIDE 2% HCL OPHTHALMIC SOLUTION 10 ML BOTTLE OU SCH (09:20)
[2022-12-11] MEDS: TIMOLOL 0.5% OPHTHALMIC SOL 5 ML BOTTLE OU SCH (09:20)
[2022-12-11] MEDS: LIDOCAINE 4% PATCH TP SCH (10:14)
[2022-12-11 10:39] LABS: HEMATOCRIT 22.5 % (32.4-45.2); HEMOGLOBIN 7.5 GM/dL (10.7-15.3); MCH 28.1 pg (25.7-33.7); MCHC 33.4 g/dl (32.0-36.0); MEAN CELL VOLUME 83.9 fl (80-96); MEAN PLT VOLUME 8.2 fl (7.5-11.1); PLATELET COUNT 215 10^3/uL (134-434); RBC 2.68 M/mm3 (3.60-5.2); RDW 14.4 % (11.6-15.6)
[2022-12-11 10:54] LABS: CHLORIDE 100 mmol/L (98-107); SODIUM 137 mmol/L (136-145)
[2022-12-11 10:55] LABS: CALCIUM 8.3 mg/dL (8.5-10.1)
[2022-12-11 10:56] LABS: ANION GAP 9 mmol/L (4-13); BLOOD UREA NITROGEN 49.7 mg/dL (7-18); CO2 29 mmol/L (21-32); GLUCOSE,RANDOM 138 mg/dL (74-106)
[2022-12-11 11:02] LABS: CREATININE 8.5 mg/dL (0.55-1.3)
[2022-12-12] MEDS: FERROUS SO4 325 MG TABLET (FP) PO SCH ×3 (00:02→21:48)
[2022-12-12] MEDS: LIDOCAINE PATCH REMOVAL MC SCH ×2 (00:03→22:14)
[2022-12-12] MEDS: HEPARIN NA (PORCINE) 5,000 UNITS/ML 1ML VIAL SQ SCH ×2 (00:03→06:00)
[2022-12-12] MEDS: ROSUVASTATIN CA 10 MG TABLET PO SCH ×2 (00:03→21:48)
[2022-12-12] MEDS: DORZOLAMIDE 2% HCL OPHTHALMIC SOLUTION 10 ML BOTTLE OU SCH ×3 (00:09→21:46)
[2022-12-12] MEDS: TIMOLOL 0.5% OPHTHALMIC SOL 5 ML BOTTLE OU SCH ×3 (00:10→21:47)
[2022-12-12] MEDS: prednisoLONE ACETATE 1% OPHTH SUSP 5 ML BOTTLE OS SCH ×3 (00:11→21:48)
[2022-12-12] MEDS: EYE OD SCH ×2 (00:11→22:05)
[2022-12-12] MEDS: LATANOPROST OD SCH ×2 (00:11→22:05)
[2022-12-12] MEDS: NETARSUDIL MESYLAT OD SCH ×2 (00:11→22:05)
[2022-12-12] MEDS: TOBRAMYCIN 0.3% OPHTH SOLN 5 ML BOTTLE OD SCH ×6 (00:13→21:46)
[2022-12-12] MEDS: BACITRACIN 3.5 GM OPTHALMIC OINT TUBE OD SCH ×8 (00:13→21:48)
[2022-12-12] MEDS: CALCITRIOL 0.25 MCG CAPSULE (FP) PO SCH (09:05)
[2022-12-12] MEDS: amLODIPine BESYLATE 5 MG TABLET (FP) PO SCH (09:06)
[2022-12-12] MEDS: ASPIRIN COATED 81 MG TABLET.EC PO SCH (09:06)
[2022-12-12] MEDS: LIDOCAINE 4% PATCH TP SCH (11:49)
[2022-12-12] MEDS ORDERED: SODIUM CHLORIDE 250 ML IV PRN (14:02)
[2022-12-13] MEDS: BACITRACIN 3.5 GM OPTHALMIC OINT TUBE OD SCH ×9 (00:10→23:05)
[2022-12-13] MEDS: TOBRAMYCIN 0.3% OPHTH SOLN 5 ML BOTTLE OD SCH ×5 (05:40→22:00)
[2022-12-13 07:12] LABS: BASO % 0.9 % (0-2.0); EOS % 2.1 % (0-4.5); HEMATOCRIT 25.1 % (32.4-45.2); HEMOGLOBIN 8.3 GM/dL (10.7-15.3); LYMPH % 31.8 % (8-40); MCH 28.2 pg (25.7-33.7); MCHC 32.8 g/dl (32.0-36.0); MEAN CELL VOLUME 85.8 fl (80-96); MEAN PLT VOLUME 8.4 fl (7.5-11.1); MONO % 11.3 % (3.8-10.2); NEUT % 53.9 % (42.8-82.8); PLATELET COUNT 241 10^3/uL (134-434); RBC 2.93 M/mm3 (3.60-5.2); RDW 14.3 % (11.6-15.6); WHITE BLOOD COUNT 6.6 K/mm3 (4.0-10.0)
[2022-12-13] MEDS ORDERED: HEPARIN NA (PORCINE) 5,000 UNITS/ML 1ML VIAL ONE ×2 (07:47→08:57)
[2022-12-13] MEDS ORDERED: LIDOCAINE HCL 1%, 10 MG/ML (20ML VIAL) ONE (07:48)
[2022-12-13] MEDS ORDERED: FENTANYL CITRATE/PF 50 MCG/ML VIAL ONE ×2 (08:55→09:03)
[2022-12-13] MEDS ORDERED: ceFAZolin SODIUM 1 GM VIAL ONE (08:55)
[2022-12-13] MEDS ORDERED: PROPOFOL 20 ML ONE (08:57)
[2022-12-13] MEDS ORDERED: LIDOCAINE HCL 1%, 10 MG/ML (20ML VIAL) INF ONE (09:02)
[2022-12-13] MEDS ORDERED: HEPARIN NA (PORCINE) 5,000 UNITS/ML 1ML VIAL SQ ONE (09:09)
[2022-12-13] MEDS ORDERED: ONDANSETRON 4 MG/2 ML VIAL ONE (09:09)
[2022-12-13] MEDS ORDERED: ONDANSETRON 4 MG/2 ML VIAL IVPUSH PRN (10:20)
[2022-12-13 10:52] VITALS: RESP 18
[2022-12-13] MEDS: TIMOLOL 0.5% OPHTHALMIC SOL 5 ML BOTTLE OU SCH ×2 (11:43→22:00)
[2022-12-13] MEDS: prednisoLONE ACETATE 1% OPHTH SUSP 5 ML BOTTLE OS SCH ×2 (11:43→21:59)
[2022-12-13] MEDS: DORZOLAMIDE 2% HCL OPHTHALMIC SOLUTION 10 ML BOTTLE OU SCH ×2 (11:44→22:00)
[2022-12-13] MEDS: FERROUS SO4 325 MG TABLET (FP) PO SCH ×2 (11:47→21:58)
[2022-12-13] MEDS: CALCITRIOL 0.25 MCG CAPSULE (FP) PO SCH (11:47)
[2022-12-13] MEDS: ASPIRIN COATED 81 MG TABLET.EC PO SCH (11:47)
[2022-12-13] MEDS: amLODIPine BESYLATE 5 MG TABLET (FP) PO SCH (11:47)
[2022-12-13] MEDS: LIDOCAINE 4% PATCH TP SCH (11:47)
[2022-12-13] MEDS ORDERED: SODIUM CHLORIDE 250 ML IV PRN (13:00)
[2022-12-13] MEDS ORDERED: EPOETIN ALFA-EPBX 10,000 UNIT/ML VIAL SQ ONE ×2 (14:00→14:02)
[2022-12-13 14:55] LABS: CHLORIDE 102 mmol/L (98-107); POTASSIUM 4.2 mmol/L (3.5-5.1); SODIUM 138 mmol/L (136-145)
[2022-12-13 14:57] LABS: CALCIUM 7.9 mg/dL (8.5-10.1)
[2022-12-13 14:58] LABS: ALBUMIN 2.6 g/dl (3.4-5.0); ANION GAP 5 mmol/L (4-13); BLOOD UREA NITROGEN 42.9 mg/dL (7-18); CO2 31 mmol/L (21-32); GLUCOSE,RANDOM 143 mg/dL (74-106)
[2022-12-13 15:00] LABS: SGPT/ALT 8 U/L (13-61)
[2022-12-13 15:01] LABS: SGOT/AST 10 U/L (15-37)
[2022-12-13 15:02] LABS: BILIRUBIN,TOTAL 0.3 mg/dL (0.2-1); TOT PROT 6.1 g/dl (6.4-8.2)
[2022-12-13 15:04] LABS: ALK PHOS 55 U/L (45-117); CREATININE 8.7 mg/dL (0.55-1.3)
[2022-12-13] MEDS ORDERED: ROSUVASTATIN CA 10 MG TABLET PO SCH (22:00)
[2022-12-13] MEDS ORDERED: PATIENT'S OWN MEDICATION (NON-FORMULARY) (Netarsudil Mesylat/Latanoprost [Rocklatan 0.02%- OD SCH (22:00)
[2022-12-13] MEDS ORDERED: LIDOCAINE PATCH REMOVAL MC SCH (22:00)
[2022-12-14] MEDS: BACITRACIN 3.5 GM OPTHALMIC OINT TUBE OD SCH ×3 (02:04→08:08)
[2022-12-14] MEDS: TOBRAMYCIN 0.3% OPHTH SOLN 5 ML BOTTLE OD SCH ×2 (05:05→10:02)
[2022-12-14 06:51] LABS: BASO % 0.7 % (0-2.0); EOS % 1.7 % (0-4.5); HEMATOCRIT 22.8 % (32.4-45.2); HEMOGLOBIN 7.4 GM/dL (10.7-15.3); LYMPH % 27.8 % (8-40); MCH 28.2 pg (25.7-33.7); MCHC 32.4 g/dl (32.0-36.0); MEAN CELL VOLUME 87.1 fl (80-96); MEAN PLT VOLUME 8.1 fl (7.5-11.1); MONO % 9.2 % (3.8-10.2); NEUT % 60.6 % (42.8-82.8); PLATELET COUNT 215 10^3/uL (134-434); RBC 2.62 M/mm3 (3.60-5.2); RDW 14.4 % (11.6-15.6); WHITE BLOOD COUNT 8.6 K/mm3 (4.0-10.0)
[2022-12-14 07:07] LABS: POTASSIUM 4.5 mmol/L (3.5-5.1)
[2022-12-14 07:15] LABS: ALBUMIN 2.6 g/dl (3.4-5.0); BLOOD UREA NITROGEN 28.3 mg/dL (7-18); CALCIUM 7.7 mg/dL (8.5-10.1); CREATININE 6.9 mg/dL (0.55-1.3)
[2022-12-14 07:16] LABS: BILIRUBIN,TOTAL 0.3 mg/dL (0.2-1); TOT PROT 6.1 g/dl (6.4-8.2)
[2022-12-14] MEDS: CALCITRIOL 0.25 MCG CAPSULE (FP) PO SCH (09:58)
[2022-12-14] MEDS: FERROUS SO4 325 MG TABLET (FP) PO SCH (09:59)
[2022-12-14] MEDS: ASPIRIN COATED 81 MG TABLET.EC PO SCH (09:59)
[2022-12-14] MEDS: DORZOLAMIDE 2% HCL OPHTHALMIC SOLUTION 10 ML BOTTLE OU SCH (10:00)
[2022-12-14] MEDS: TIMOLOL 0.5% OPHTHALMIC SOL 5 ML BOTTLE OU SCH (10:00)
[2022-12-14] MEDS: prednisoLONE ACETATE 1% OPHTH SUSP 5 ML BOTTLE OS SCH (10:02)
[2022-12-14] MEDS: amLODIPine BESYLATE 5 MG TABLET (FP) PO SCH (10:02)
[2022-12-14] MEDS: LIDOCAINE 4% PATCH TP SCH (10:04)
[2022-12-14 11:45] VITALS: BP 109/59; PULSE 92; TEMP 98.5
== END 2022-12-14 11:31 | DRG 673 ==
LOC: JER 13:15 → JERBED 17:18 → J4W 23:29 → OBSVTOIN 11-27 09:26
PROVIDERS: ADMIT Internal Medicine; ATTEND Internal Medicine
PROC: B543ZZA Ultrasonography of Right Jugular Veins, Guidance (ICD-10-PCS; 2022-11-28)
PROC: 05HM33Z Insertion of Infusion Device into Right Internal Jugular Vein, Percutaneous Approach (ICD-10-PCS; principal; 2022-11-28 18:30)
PROC: 5A1D70Z Performance of Urinary Filtration, Intermittent, Less than 6 Hours Per Day (ICD-10-PCS; 2022-11-29)
PROC: 5A1D70Z Performance of Urinary Filtration, Intermittent, Less than 6 Hours Per Day (ICD-10-PCS; 2022-12-04)
PROC: 5A1D70Z Performance of Urinary Filtration, Intermittent, Less than 6 Hours Per Day (ICD-10-PCS; 2022-12-06)
PROC: 5A1D70Z Performance of Urinary Filtration, Intermittent, Less than 6 Hours Per Day (ICD-10-PCS; 2022-12-08)
PROC: 5A1D70Z Performance of Urinary Filtration, Intermittent, Less than 6 Hours Per Day (ICD-10-PCS; 2022-12-11)
PROC: 0JH63XZ Insertion of Tunneled Vascular Access Device into Chest Subcutaneous Tissue and Fascia, Percutaneous Approach (ICD-10-PCS; 2022-12-13)
PROC: 0JPT3XZ Removal of Tunneled Vascular Access Device from Trunk Subcutaneous Tissue and Fascia, Percutaneous Approach (ICD-10-PCS; 2022-12-13)
PROC: 5A1D70Z Performance of Urinary Filtration, Intermittent, Less than 6 Hours Per Day (ICD-10-PCS; 2022-12-13)
DX: N17.9 Acute kidney failure, unspecified (principal); G92.8 Other toxic encephalopathy; I12.0 Hypertensive chronic kidney disease with stage 5 chronic kidney disease or end stage renal disease; J98.11 Atelectasis; R44.3 Hallucinations, unspecified; B02.39 Other herpes zoster eye disease; L03.213 Periorbital cellulitis; N18.6 End stage renal disease; I25.10 Atherosclerotic heart disease of native coronary artery without angina pectoris; I95.9 Hypotension, unspecified; R42 Dizziness and giddiness; R41.82 Altered mental status, unspecified; I16.0 Hypertensive urgency; H81.10 Benign paroxysmal vertigo, unspecified ear; E78.5 Hyperlipidemia, unspecified; J44.9 Chronic obstructive pulmonary disease, unspecified; T37.5X5A Adverse effect of antiviral drugs, initial encounter; K86.89 Other specified diseases of pancreas; N28.89 Other specified disorders of kidney and ureter; I95.1 Orthostatic hypotension; E87.5 Hyperkalemia; Z86.73 Personal history of transient ischemic attack (TIA), and cerebral infarction without residual deficits; H10.89 Other conjunctivitis; E55.9 Vitamin D deficiency, unspecified; H40.9 Unspecified glaucoma; H26.8 Other specified cataract; Z95.5 Presence of coronary angioplasty implant and graft
CPT/HCPCS: 36415; 70450-TC; 70480-TC; 70490-TC; 70551-TC; 71045-TC-FY; 71250-TC; 76000-TC-FY; 76775-TC; 80048; 80053; 80061; 81003; 82728; 82962; 83516; 83520; 83540; 83550; 83735; 84100; 84155; 84165; 84439; 84443; 84484; 85025; 85027; 85610; 85730; 86038; 86225; 86256; 86704; 86803; 87040; 87086; 87340; 87517; 87529; 87635; 93005; 93010; 93880-TC; 94760; 94761; 97116-GP; 97162-GP; 99285-25; C1750; G0378; G0480; J1644; Q5106

== ENCOUNTER 2023-05-03 04:05 | Day surgery (SDC) | payer OTHER ==
[2023-05-01 18:36] VITALS: BMI 24.7
[2023-05-03] MEDS ORDERED: POVIDONE-IODINE OINTMENT 10% - 28.4 GM TUBE ONE (08:12)
[2023-05-03] MEDS ORDERED: LIDOCAINE HCL 1%, 10 MG/ML (20ML VIAL) ONE ×2 (08:12→09:57)
[2023-05-03] MEDS ORDERED: HEPARIN NA (PORCINE) 5,000 UNITS/ML 1ML VIAL ONE (08:12)
[2023-05-03] MEDS ORDERED: ONDANSETRON 4 MG/2 ML VIAL ONE (08:34)
[2023-05-03] MEDS ORDERED: LIDOCAINE HCL/PF 2% SDV 5ML VIAL ONE (08:34)
[2023-05-03] MEDS ORDERED: PROPOFOL 40 ML ONE (08:34)
[2023-05-03] MEDS ORDERED: MIDAZOLAM HCL 2 MG/2 ML SINGLE DOSE VIAL ONE (08:35)
[2023-05-03] MEDS: ceFAZolin SODIUM 1 GM VIAL IVPB ONE (09:19)
[2023-05-03] MEDS: LIDOCAINE HCL 1%, 10 MG/ML (50 mL VIAL) INF ONE ×3 (09:42)
[2023-05-03] MEDS ORDERED: ONDANSETRON 4 MG/2 ML VIAL IVPUSH PRN (11:18)
[2023-05-03] MEDS ORDERED: SODIUM CHLORIDE 1,000 ML IV SCH (11:30)
[2023-05-03 13:10] VITALS: PULSE 90
[2023-05-03] MEDS ORDERED: ACETAMINOPHEN 325 MG TABLET (FP) PO PRN (13:29)
[2023-05-03] MEDS: ACETAMINOPHEN 325 MG TABLET (FP) ONE (13:30)
[2023-05-03 15:29] VITALS: BP 109/61; RESP 16; TEMP 97.7
== END 2023-05-03 15:15 | disposition home or self-care (01) ==
LOC: JASU-SURG 04:05
PROVIDERS: ATTEND Surgery Vascular Surgery
PROC: 03180ZD Bypass Left Brachial Artery to Upper Arm Vein, Open Approach (ICD-10-PCS; principal; 2023-05-03 09:00)
DX: I12.0 Hypertensive chronic kidney disease with stage 5 chronic kidney disease or end stage renal disease (principal); E11.22 Type 2 diabetes mellitus with diabetic chronic kidney disease; N18.6 End stage renal disease; Z99.2 Dependence on renal dialysis
CPT/HCPCS: 36415; 84132; 94760; J1644

== ENCOUNTER 2023-08-22 04:28 | Day surgery (SDC) | payer OTHER ==
[2023-08-21 12:29] VITALS: BMI 24.3
[2023-08-22] MEDS ORDERED: HEPARIN NA (PORCINE) 5,000 UNITS/ML 1ML VIAL ONE (14:00)
[2023-08-22] MEDS ORDERED: POVIDONE-IODINE OINTMENT 10% - 28.4 GM TUBE ONE (14:00)
[2023-08-22] MEDS ORDERED: PROPOFOL 20 ML ONE (15:35)
[2023-08-22] MEDS ORDERED: SUCCINYLCHOLINE CHLORIDE 200 MG/10 ML SYRINGE ONE (15:35)
[2023-08-22] MEDS: ceFAZolin SODIUM 1 GM VIAL IVPB ONE (15:45)
[2023-08-22] MEDS: LIDOCAINE HCL 1%, 10 MG/ML (20ML VIAL) INF ONE (17:14)
[2023-08-22] MEDS: POVIDONE-IODINE OINTMENT 10% - 28.4 GM TUBE TP ONE (17:15)
[2023-08-22] MEDS ORDERED: ONDANSETRON 4 MG/2 ML VIAL IVPUSH PRN (17:38)
[2023-08-22 19:58] VITALS: BP 139/76; PULSE 58; RESP 16; TEMP 97.1
== END 2023-08-22 19:50 | disposition home or self-care (01) ==
LOC: JASU-SURG 04:28
PROVIDERS: ATTEND Surgery Vascular Surgery
PROC: 03180ZD Bypass Left Brachial Artery to Upper Arm Vein, Open Approach (ICD-10-PCS; principal; 2023-08-22 14:30)
DX: I12.0 Hypertensive chronic kidney disease with stage 5 chronic kidney disease or end stage renal disease (principal); N18.6 End stage renal disease; Z99.2 Dependence on renal dialysis
CPT/HCPCS: 36415; 84132; 94760; J1644

== ENCOUNTER 2023-11-29 04:28 | Day surgery (SDC) | payer OTHER ==
[2023-11-28 11:19] VITALS: BMI 24.3
[2023-11-29 06:48] VITALS: RESP 16; TEMP 97.6
[2023-11-29] MEDS ORDERED: ONDANSETRON 4 MG/2 ML VIAL ONE (07:13)
[2023-11-29] MEDS ORDERED: ceFAZolin SODIUM 1 GM VIAL ONE (07:13)
[2023-11-29] MEDS ORDERED: DEXAMETHASONE SOD PHOSPHATE 4 MG/1 ML VIAL ONE (07:13)
[2023-11-29] MEDS ORDERED: PHENYLEPHRINE HCL 10 MG/1 ML SINGLE DOSE VIAL ONE (07:16)
[2023-11-29] MEDS ORDERED: LIDOCAINE HCL 1%, 10 MG/ML (20ML VIAL) ONE (07:22)
[2023-11-29] MEDS ORDERED: HEPARIN NA (PORCINE) 5,000 UNITS/ML 1ML VIAL ONE (07:22)
[2023-11-29] MEDS ORDERED: MIDAZOLAM HCL 2 MG/2 ML SINGLE DOSE VIAL ONE (08:09)
[2023-11-29] MEDS: ceFAZolin SODIUM 1 GM VIAL IVPB ONE (08:10)
[2023-11-29] MEDS: LIDOCAINE HCL 1%, 10 MG/ML (20ML VIAL) INF ONE ×2 (08:25)
[2023-11-29] MEDS: HEPARIN NA (PORCINE) 5,000 UNITS/ML 1ML VIAL SQ ONE ×2 (08:30)
[2023-11-29 10:20] VITALS: BP 108/63; PULSE 78
== END 2023-11-29 11:00 | disposition home or self-care (01) ==
LOC: JASU-SURG 04:28
PROVIDERS: ATTEND Surgery Vascular Surgery
PROC: 057C3ZZ Dilation of Left Basilic Vein, Percutaneous Approach (ICD-10-PCS; principal; 2023-11-29 07:30)
DX: T82.898A Other specified complication of vascular prosthetic devices, implants and grafts, initial encounter (principal); Y83.8 Other surgical procedures as the cause of abnormal reaction of the patient, or of later complication, without mention of misadventure at the time of the procedure; Y92.9 Unspecified place or not applicable; I13.11 Hypertensive heart and chronic kidney disease without heart failure, with stage 5 chronic kidney disease, or end stage renal disease
CPT/HCPCS: 76000-TC-FY; 82962; 94760; J1644

== ENCOUNTER 2023-11-29 11:02 | Observation (INO) | payer OTHER ==
[2023-11-29 11:23] VITALS: BMI 23.1
[2023-11-29 12:20] LABS: BASO % 0.5 % (0-2.0); EOS % 3.7 % (0-4.5); HEMATOCRIT 22.7 % (32.4-45.2); HEMOGLOBIN 7.2 GM/dL (10.7-15.3); LYMPH % 35.9 % (8-40); MCH 30.2 pg (25.7-33.7); MEAN CELL VOLUME 94.4 fl (80-96); MONO % 12.3 % (3.8-10.2); NEUT % 47.6 % (42.8-82.8); PLATELET COUNT 161 10^3/uL (134-434); RDW 16.7 % (11.6-15.6); WHITE BLOOD COUNT 6.1 K/mm3 (4.0-10.0)
[2023-11-29 12:46] LABS: CHLORIDE 107 mmol/L (98-107); POTASSIUM 3.7 mmol/L (3.5-5.1); SODIUM 140 mmol/L (136-145)
[2023-11-29] MEDS: LACTATED RINGERS SOLUTION 1000 ML INFUS.BAG IV ONE (12:46)
[2023-11-29 12:48] LABS: ANION GAP 6 mmol/L (4-13); CO2 28 mmol/L (21-32)
[2023-11-29 12:49] LABS: BLOOD UREA NITROGEN 23.7 mg/dL (7-18); GLUCOSE,RANDOM 161 mg/dL (74-106); MAGNESIUM 1.7 mg/dL (1.8-2.4)
[2023-11-29 12:52] LABS: CREATININE 4.8 mg/dL (0.55-1.3); SGOT/AST 19 U/L (15-37); SGPT/ALT < 6 U/L (13-61)
[2023-11-29 12:53] LABS: BILIRUBIN,TOTAL 0.4 mg/dL (0.2-1)
[2023-11-29 12:54] LABS: ALBUMIN 2.1 g/dl (3.4-5.0); CALCIUM 8.3 mg/dL (8.5-10.1); TOT PROT 4.9 g/dl (6.4-8.2)
[2023-11-29 12:55] LABS: ALK PHOS 43 U/L (45-117)
[2023-11-29 12:57] LABS: N-TERMINAL BNP 999.8 pg/ml (5-450)
[2023-11-29 13:23] LABS: INR 1.01 (0.83-1.09); PROTHROMBIN TIME (PATIENT) 11.4 SEC (9.7-13.0)
[2023-11-29 13:26] LABS: ACTIVATED PTT 27.1 SECONDS (25.2-36.5)
[2023-11-29 14:47] LABS: CALCIUM 9.5 mg/dL (8.5-10.1)
[2023-11-29 14:48] LABS: BLOOD UREA NITROGEN 27.2 mg/dL (7-18)
[2023-11-29 14:51] LABS: CREATININE 5.4 mg/dL (0.55-1.3)
[2023-11-29 14:52] LABS: ALBUMIN 2.8 g/dl (3.4-5.0)
[2023-11-29 14:53] LABS: BILIRUBIN,TOTAL 0.4 mg/dL (0.2-1); TOT PROT 6.5 g/dl (6.4-8.2)
[2023-11-29 16:53] LABS: HEMATOCRIT 28.6 % (32.4-45.2); HEMOGLOBIN 9.4 GM/dL (10.7-15.3); MCH 30.9 pg (25.7-33.7); MCHC 32.7 g/dl (32.0-36.0); MEAN CELL VOLUME 94.3 fl (80-96); PLATELET COUNT 169 10^3/uL (134-434); RBC 3.03 M/mm3 (3.60-5.2); RDW 16.5 % (11.6-15.6); WHITE BLOOD COUNT 8.6 K/mm3 (4.0-10.0)
[2023-11-29] MEDS ORDERED: MIDODRINE HCL 2.5 MG TABLET PO PRN (19:26)
[2023-11-29] MEDS: DORZOLAMIDE HCL/TIMOLOL OPHTHALMIC SOLUTION 10 ML BOTTLE OU SCH (21:07)
[2023-11-29] MEDS: PATIENT'S OWN MEDICATION (NON-FORMULARY) (Netarsudil Mesylat/Latanoprost [Rocklatan 0.02%- SCH (22:15)
[2023-11-30 07:03] LABS: HEMATOCRIT 28.8 % (32.4-45.2); HEMOGLOBIN 9.5 GM/dL (10.7-15.3); MCH 30.8 pg (25.7-33.7); MCHC 32.9 g/dl (32.0-36.0); MEAN CELL VOLUME 93.6 fl (80-96); MEAN PLT VOLUME 8.3 fl (7.5-11.1); PLATELET COUNT 164 10^3/uL (134-434); RBC 3.08 M/mm3 (3.60-5.2); RDW 16.8 % (11.6-15.6); WHITE BLOOD COUNT 7.9 K/mm3 (4.0-10.0)
[2023-11-30 07:19] LABS: POTASSIUM 3.8 mmol/L (3.5-5.1)
[2023-11-30 07:22] LABS: BLOOD UREA NITROGEN 32.5 mg/dL (7-18); CALCIUM 9.1 mg/dL (8.5-10.1)
[2023-11-30 07:23] LABS: ALBUMIN 2.6 g/dl (3.4-5.0)
[2023-11-30 07:25] LABS: CREATININE 6.6 mg/dL (0.55-1.3)
[2023-11-30 07:27] LABS: BILIRUBIN,TOTAL 0.5 mg/dL (0.2-1); TOT PROT 5.6 g/dl (6.4-8.2)
[2023-11-30] MEDS: ATORVASTATIN CA 20 MG TABLET (FP) PO SCH (09:47)
[2023-11-30] MEDS: SEVELAMER CARBONATE 800 MG TAB (FP) PO SCH (09:47)
[2023-11-30] MEDS: CALCITRIOL 0.25 MCG CAPSULE (FP) PO SCH (09:47)
[2023-11-30] MEDS ORDERED: SODIUM CHLORIDE 250 ML IV PRN (10:07)
[2023-11-30 11:03] LABS: URINE APPEARANCE TURBID; URINE BILIRUBIN NEGATIVE (NEGATIVE); URINE COLOR YELLOW; URINE GLUCOSE (UA) NEGATIVE (NEGATIVE); URINE KETONE NEGATIVE (NEGATIVE)
[2023-11-30 11:04] LABS: EPI CELLS 80.7 /uL (0-25.1); HYALINE CASTS 321.44 /uL (0-3.1); PH,URINE 7.5 (5.0-8.0); URINE LEUK ESTERASE 3+ (NEGATIVE); URINE NITRITE NEGATIVE (NEGATIVE); URINE PROTEIN 3+ (NEGATIVE); URINE RBC 410.5 /uL (0-23.9); URINE UROBILINOGEN 0.2 mg/dL (0.2-1.0); URINE WBC 29472.9 /uL (0-25.8)
[2023-11-30 11:05] LABS: URINE BACTERIA 2397.8 /uL (0-1359)
[2023-11-30 11:33] LABS: YEAST NEGATIVE (NEGATIVE)
[2023-11-30 14:32] VITALS: RESP 18
[2023-11-30] MEDS: HEPARIN NA (PORCINE) 5,000 UNITS/ML 1ML VIAL IVPUSH ONE (17:25)
[2023-11-30] MEDS: EPOETIN ALFA-EPBX 10,000 UNIT/ML VIAL SQ ONE (20:00)
[2023-12-01 11:12] VITALS: BP 112/91; PULSE 83; TEMP 98.3
== END 2023-12-01 12:15 | disposition home or self-care (01) ==
LOC: JER 11:02 → UNDOADMOB 17:32 → INTOOBSV 17:32 → JERBED 17:32 → J4W 18:20 → JERBED 11-30 10:31 → J4W 11-30 10:31
PROVIDERS: ADMIT Internal Medicine; ATTEND Internal Medicine
PROC: 3E023GC Introduction of Other Therapeutic Substance into Muscle, Percutaneous Approach (ICD-10-PCS; principal; 2023-11-30)
PROC: 3E033GC Introduction of Other Therapeutic Substance into Peripheral Vein, Percutaneous Approach (ICD-10-PCS; 2023-11-30)
PROC: 3E0337Z Introduction of Electrolytic and Water Balance Substance into Peripheral Vein, Percutaneous Approach (ICD-10-PCS; 2023-11-30)
DX: I13.11 Hypertensive heart and chronic kidney disease without heart failure, with stage 5 chronic kidney disease, or end stage renal disease (principal); I11.9 Hypertensive heart disease without heart failure; Z99.2 Dependence on renal dialysis; Z90.89 Acquired absence of other organs; Z86.73 Personal history of transient ischemic attack (TIA), and cerebral infarction without residual deficits; D50.0 Iron deficiency anemia secondary to blood loss (chronic); Z98.890 Other specified postprocedural states; Z88.8 Allergy status to other drugs, medicaments and biological substances
CPT/HCPCS: 0241U-QW; 36415; 36430; 71045-TC-FY; 80053; 81003; 82272; 83735; 83880; 84484; 85025; 85027; 85610; 85730; 86704; 86803; 86850; 86900; 86901; 86922; 87086; 87186; 87340; 93005; 93010; 96361; 96372; 96374; 97116-GP; 97162-GP; 99285-25; G0378; J1644; P9058; Q5106

== ENCOUNTER 2024-05-14 14:22 | Inpatient (IN) | payer OTHER ==
[2024-05-14 16:34] LABS: ABSOLUTE IMMATURE GRANULOCYTES 0.02 x10^3/uL (0.0-0.031); BASOPHILS # 0.05 x10^3/uL (0.01-0.08); EOSINOPHIL % 3.4 % (0.7-5.8); EOSINOPHILS # 0.26 x10^3/uL (0.04-0.36); HEMATOCRIT 33.1 % (34.1-44.9); HEMOGLOBIN 10.6 g/dL (11.2-15.7); MEAN CELL VOLUME 94.6 fl (79.4-94.8); MEAN PLT VOLUME 10.2 fl (9.4-12.3); MONOCYTE # 0.86 x10^3/uL (0.24-0.86); MONOCYTE % 11.3 % (4.7-12.5); PLATELET COUNT # 207 x10^3/uL (182-369); RDW 15.8 % (12.5-17.0)
[2024-05-14 16:42] LABS: INR 0.97 (0.83-1.09); PROTHROMBIN TIME (PATIENT) 10.6 SEC (9.7-13.0)
[2024-05-14 16:44] LABS: ACTIVATED PTT 26.4 SECONDS (25.2-36.5)
[2024-05-14 17:03] LABS: POTASSIUM 3.5 mmol/L (3.5-5.1)
[2024-05-14 17:07] LABS: ALBUMIN 3.1 g/dl (3.4-5.0); BLOOD UREA NITROGEN 51.6 mg/dL (7-18); CALCIUM 10.2 mg/dL (8.5-10.1); MAGNESIUM 2.3 mg/dL (1.8-2.4)
[2024-05-14 17:11] LABS: PHOSPHOROUS 2.8 mg/dL (2.5-4.9)
[2024-05-14 17:12] LABS: BILIRUBIN,TOTAL 0.5 mg/dL (0.2-1); TOT PROT 6.9 g/dl (6.4-8.2)
[2024-05-14 18:02] LABS: HCV DIAGNOSTIC IN-HOUSE W/RFLX NON-REACTIVE (NONREACTIVE); HIV INTERPRETATION NEGATIVE (NEGATIVE)
[2024-05-14 20:57] LABS: EPI CELLS >36 /uL (0-25.1); HYALINE CASTS 0 /uL (0-3.1); PH,URINE 8.5 (5.0-8.0); URINE APPEARANCE TURBID; URINE BACTERIA 3456 /uL (0-1359); URINE BILIRUBIN NEGATIVE (NEGATIVE); URINE COLOR YELLOW; URINE GLUCOSE (UA) NEGATIVE (NEGATIVE); URINE KETONE NEGATIVE (NEGATIVE); URINE LEUK ESTERASE 3+ (NEGATIVE); URINE NITRITE NEGATIVE (NEGATIVE); URINE PROTEIN 2+ (NEGATIVE); URINE RBC 34 /uL (0-23.9); URINE UROBILINOGEN 0.2 mg/dL (0.2-1.0); URINE WBC 3057 /uL (0-25.8)
[2024-05-14] MEDS ORDERED: ACETAMINOPHEN 325 MG TABLET (FP) PO PRN (21:32)
[2024-05-14] MEDS ORDERED: CALCIUM ACETATE 667 MG CAPSULE (FP) PO SCH (21:45)
[2024-05-14] MEDS ORDERED: ATORVASTATIN CA 20 MG TABLET (FP) ONE (21:53)
[2024-05-14] MEDS ORDERED: HEPARIN NA (PORCINE) 5,000 UNITS/ML 1ML VIAL SQ SCH (22:00)
[2024-05-14] MEDS: ATORVASTATIN CA 20 MG TABLET (FP) PO SCH (22:05)
[2024-05-14] MEDS: DORZOLAMIDE HCL/TIMOLOL OPHTHALMIC SOLUTION 10 ML BOTTLE OU SCH (22:45)
[2024-05-15 07:55] LABS: HEMOGLOBIN 10.3 g/dL (11.2-15.7); MCHC 32.2 g/dl (32.2-35.5); MEAN CELL VOLUME 93.8 fl (79.4-94.8); MEAN PLT VOLUME 10.7 fl (9.4-12.3); PLATELET COUNT # 194 x10^3/uL (182-369); RDW 15.7 % (12.5-17.0)
[2024-05-15 08:15] LABS: CHLORIDE 98 mmol/L (98-107); POTASSIUM 3.4 mmol/L (3.5-5.1); SODIUM 138 mmol/L (136-145)
[2024-05-15] MEDS ORDERED: SODIUM CHLORIDE 250 ML IV PRN ×2 (08:15→15:49)
[2024-05-15 08:21] LABS: ALBUMIN 2.8 g/dl (3.4-5.0); ANION GAP 9 mmol/L (4-13); BLOOD UREA NITROGEN 65.7 mg/dL (7-18); CO2 31 mmol/L (21-32); GLUCOSE,RANDOM 89 mg/dL (74-106); MAGNESIUM 2.4 mg/dL (1.8-2.4)
[2024-05-15 08:23] LABS: CREATININE 7.9 mg/dL (0.55-1.3); SGOT/AST 14 U/L (15-37); SGPT/ALT 11 U/L (13-61)
[2024-05-15 08:24] LABS: PHOSPHOROUS 3.2 mg/dL (2.5-4.9)
[2024-05-15 08:25] LABS: BILIRUBIN,TOTAL 0.5 mg/dL (0.2-1); TOT PROT 6.2 g/dl (6.4-8.2)
[2024-05-15 08:26] LABS: ALK PHOS 57 U/L (45-117)
[2024-05-15] MEDS: CEFTRIAXONE 1 G/50 ML PREMIX 50 ML IVPB SCH (11:07)
[2024-05-15] MEDS: VITAMIN B COMP W-C 1 EA TABLET (NEPHRO-VITE) PO SCH (11:07)
[2024-05-15] MEDS: ASPIRIN COATED 81 MG TABLET.EC PO SCH (11:07)
[2024-05-15] MEDS: CALCIUM ACETATE 667 MG CAPSULE (FP) PO SCH (11:08)
[2024-05-15] MEDS: CALCITRIOL 0.25 MCG CAPSULE (FP) PO SCH (11:08)
[2024-05-15] MEDS ORDERED: ARTIFICIAL TEARS OPHTHALMIC DROPS OU PRN (14:15)
[2024-05-15 15:48] VITALS: BMI 24.5
[2024-05-15] MEDS: EPOETIN ALFA-EPBX 10,000 UNIT/ML VIAL SQ ONE (16:29)
[2024-05-16 07:48] LABS: HEMATOCRIT 34.9 % (34.1-44.9); MCHC 31.5 g/dl (32.2-35.5); MEAN CELL VOLUME 93.3 fl (79.4-94.8); MEAN PLT VOLUME 10.8 fl (9.4-12.3); PLATELET COUNT # 193 x10^3/uL (182-369); RDW 15.8 % (12.5-17.0)
[2024-05-16 08:10] LABS: POTASSIUM 3.4 mmol/L (3.5-5.1)
[2024-05-16 08:16] LABS: ALBUMIN 2.9 g/dl (3.4-5.0); CALCIUM 9.3 mg/dL (8.5-10.1)
[2024-05-16 08:19] LABS: BILIRUBIN,TOTAL 0.6 mg/dL (0.2-1); CREATININE 5.5 mg/dL (0.55-1.3)
[2024-05-16 08:20] LABS: TOT PROT 6.5 g/dl (6.4-8.2)
[2024-05-16 08:29] LABS: BLOOD UREA NITROGEN 29.2 mg/dL (7-18)
[2024-05-17 07:38] LABS: HEMATOCRIT 33.5 % (34.1-44.9); HEMOGLOBIN 10.5 g/dL (11.2-15.7); MCHC 31.3 g/dl (32.2-35.5); MEAN CELL VOLUME 95.2 fl (79.4-94.8); MEAN PLT VOLUME 10.6 fl (9.4-12.3); PLATELET COUNT # 188 x10^3/uL (182-369); RDW 15.7 % (12.5-17.0)
[2024-05-17 07:40] LABS: POTASSIUM 3.8 mmol/L (3.5-5.1)
[2024-05-17 07:50] LABS: BLOOD UREA NITROGEN 14.8 mg/dL (7-18); CALCIUM 9.1 mg/dL (8.5-10.1); MAGNESIUM 1.9 mg/dL (1.8-2.4)
[2024-05-17 07:53] LABS: CREATININE 3.9 mg/dL (0.55-1.3); PHOSPHOROUS 2.5 mg/dL (2.5-4.9)
[2024-05-17 07:54] LABS: BILIRUBIN,TOTAL 0.6 mg/dL (0.2-1); TOT PROT 6.4 g/dl (6.4-8.2)
[2024-05-18 07:25] LABS: POTASSIUM 3.8 mmol/L (3.5-5.1)
[2024-05-18 07:29] LABS: BLOOD UREA NITROGEN 29.7 mg/dL (7-18); CALCIUM 9.3 mg/dL (8.5-10.1); MAGNESIUM 2.1 mg/dL (1.8-2.4)
[2024-05-18 07:32] LABS: PHOSPHOROUS 3.4 mg/dL (2.5-4.9)
[2024-05-18 07:33] LABS: CREATININE 6.1 mg/dL (0.55-1.3)
[2024-05-18 07:34] LABS: BILIRUBIN,TOTAL 0.6 mg/dL (0.2-1); TOT PROT 6.4 g/dl (6.4-8.2)
[2024-05-18 07:50] LABS: ABSOLUTE IMMATURE GRANULOCYTES 0.02 x10^3/uL (0.0-0.031); BASOPHILS # 0.06 x10^3/uL (0.01-0.08); EOSINOPHILS # 0.28 x10^3/uL (0.04-0.36); HEMATOCRIT 35.4 % (34.1-44.9); HEMOGLOBIN 10.9 g/dL (11.2-15.7); MCHC 30.8 g/dl (32.2-35.5); MEAN CELL VOLUME 95.4 fl (79.4-94.8); MEAN PLT VOLUME 10.8 fl (9.4-12.3); MONOCYTE # 0.77 x10^3/uL (0.24-0.86); PLATELET COUNT # 196 x10^3/uL (182-369); RDW 15.9 % (12.5-17.0)
[2024-05-18] MEDS ORDERED: SODIUM CHLORIDE 250 ML IV PRN (11:51)
[2024-05-19 06:57] LABS: HEMATOCRIT 32.1 % (34.1-44.9); MCHC 31.2 g/dl (32.2-35.5); MEAN CELL VOLUME 95.3 fl (79.4-94.8); MEAN PLT VOLUME 10.5 fl (9.4-12.3); PLATELET COUNT # 182 x10^3/uL (182-369); RDW 15.9 % (12.5-17.0)
[2024-05-19 07:37] LABS: PHOSPHOROUS 4.4 mg/dL (2.5-4.9)
[2024-05-19 14:02] VITALS: RESP 18
[2024-05-19 15:06] VITALS: BP 143/79; PULSE 73; TEMP 98.6
== END 2024-05-19 17:19 | DRG 689 ==
LOC: JER 14:22 → JERBED 18:52 → J4W 05-15 00:16 → OBSVTOIN 05-16 14:04
PROVIDERS: ADMIT Internal Medicine; ATTEND Internal Medicine
PROC: 5A1D70Z Performance of Urinary Filtration, Intermittent, Less than 6 Hours Per Day (ICD-10-PCS; principal; 2024-05-15)
DX: N39.0 Urinary tract infection, site not specified (principal); G93.41 Metabolic encephalopathy; N18.6 End stage renal disease; I12.0 Hypertensive chronic kidney disease with stage 5 chronic kidney disease or end stage renal disease; I25.10 Atherosclerotic heart disease of native coronary artery without angina pectoris; Z99.2 Dependence on renal dialysis; E78.5 Hyperlipidemia, unspecified
CPT/HCPCS: 0241U-QW; 36415; 70450-TC; 71046-TC-FY; 72125-TC; 72170-TC-FY; 73060-TC-LT-FY; 73070-TC-LT-FY; 73502-TC-LT-FY; 80053; 81003; 83735; 83970; 84100; 84439; 84443; 84484; 85025; 85027; 85610; 85730; 86803; 86850; 86900; 86901; 87040; 87086; 87186; 87340; 87389; 93005; 93010; 93306-TC; 97116-GP; 97161-GP; 99285-25; G0378; Q5106